=== PATIENT | female | born 1955 | race Caucasian/White ===

== ENCOUNTER 2020-08-09 05:46 | Emergency (ER) | payer MEDICARE, SELFPAY ==
[2020-08-09] VITALS (13 sets, daily range): BP systolic 123–187; BP diastolic 36–86; PULSE 91–111; RESP 16–99; TEMP 37.6; O2SAT 94–100
--- NOTE | ~2020-08-09 | XR_ITS ---
EXAMINATION: XR chest 1V portable DATE: 08/09/2020 06:22 INDICATION: Weakness and mid back pain. TECHNIQUE: frontal view of the chest was obtained. COMPARISON: 01/20/2018 FINDINGS: The lungs remain clear with no focal airspace opacities, pulmonary edema, pleural effusion or pneumot horax. The cardiomediastinal silhouette is normal. Moderate thoracic spondylosis. IMPRESSION: 1. No acute cardiopulmonary disease. Reviewed, dictated and finalized at location A.
--- NOTE | 2020-08-09 05:50 | ECG_ITS ---
Measurements Intervals [place] Rate: 99 P: -3 ME: 155 QRS: -31 QRSD: 83 T: 11 QT: 352 QTc: 452 Interpretive Statements SINUS RHYTHM LEFT AXIS DEVIATION INCOMPLETE RIGHT BUNDLE BRANCH BLOCK DELAYED PRECORDIAL R/S TRANSITION BASELINE ARTIFACT- II, III, AVR, AVF, V1, V3-V6 BORDERLINE ECG Electronically Signed On 08-09-2020 6:06:23 CDT by Fuentes Mejia D.O.
--- NOTE | 2020-08-09 06:00 | PC.NURSE ---
Pt presents to ED with complaints of generalized weakness that onset this past saturday after pt and received Pfizer covid shot. Pt states pain is in her mid back and goes to her waist. Pt noted with poor appetite, nausea and diarrhea. Pt denies fever, chills, chest pain and sob. Pt arrived to alert and oriented x4 and in no obvious distress. presented to bedside. EKG completed during triage at 0556. Pt noted to be a diabetic and glucose upon arrival to ED was 267. No edema noted to extremities. Scabbed and discolored right elbow due to recent fall last saturday. Pt resting on cart in its lowest position with call button and personal items within reach. Pt advised to press call button for assistance.
--- NOTE | 2020-08-09 06:03 | PC.NURSE ---
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 Pt provided a specimen cup and advised to call staff when she is ready to urinate. Pt also advised that if she is not able to urinate she may need to be straight cath and voices her understanding.
[2020-08-09 06:06] LABS: Glucose Point of Care 267 mg/dl (65-105)
[2020-08-09 06:16] LABS: Basophils Percent Auto 0.4 % (0.2-1.2); Eosinophils Percent Auto 0.2 % (0-4.4); Hematocrit 39.3 % (37.0-47.0); Hemoglobin 13.8 g/dL (12.0-15.0); Immature Granulocyte Absolute 0.02 K/mm3 (0.00-0.031); Immature Granulocyte Percent A 0.4 % (0-0.5); Lymphocytes Percent Auto 21.2 % (18.3-44.2); Mean Corpuscular HGB Conc 35.1 g/dl (32-36); Mean Corpuscular Hemoglobin 29.7 pg (26-34); Mean Corpuscular Volume 84.7 fl (80-100); Mean Platelet Volume 9.7 fl (7.4-10.4); Monocytes Absolute Auto 0.5 K/mm3 (0.1-0.6); Monocytes Percent Auto 11.5 % (2.6-8.5); Neutrophils Absolute Auto 3.1 K/mm3 (1.3-6.7); Neutrophils Percent Auto 66.3 % (45.5-73.1); Platelet Count Result 176 k/mm3 (150-375); Red Blood Count 4.64 M/mm3 (4.2-5.4); Red Cell Distribution Width 12.2 % (11.5-14.5); White Blood Count 4.7 K/mm3 (4.5-10.0)
--- NOTE | 2020-08-09 06:21 | PC.NURSE ---
CXR completed at bedside.
[2020-08-09 06:26] LABS: Alanine Aminotransferase 32 U/L (4-35); Albumin Level 4.6 g/dL (3.5-5.1); Alkaline Phosphatase 58 U/L (38-126); Anion Gap 14 mmol/L (8-16); Aspartate Amino Transferase 46 U/L (14-36); Bilirubin,Total 0.7 mg/dL (0.2-1.3); Blood Urea Nitrogen 17 mg/dL (7-17); Calcium 9.3 mg/dL (8.4-10.2); Carbon Dioxide 21 mmol/L (22-30); Chloride 100 mmol/L (98-107); Estimated Glomerular Filt Rate > 60; Glucose 273 mg/dL (65-105); Potassium 3.8 mmol/L (3.4-5.0); Sodium 135 mmol/L (137-145)
--- NOTE | 2020-08-09 06:56 | PC.NURSE ---
Pt assisted on and off of bedpan and urine specimen collected and sent to lab. Pt resting on cart in its lowest position with call button and personal items within reach. remains at bedside. Pt advised to press call button for assistance. Pt remains alert, stable and in no obvious distress with stable vitals.
[2020-08-09 07:13] LABS: Add Urine Microscopic? YES; Appearance Urine Clear (Clear); Bilirubin Urine Negative (Negative); Blood Urine Negative (Negative); Color Urine Amber (Yellow); Glucose Urine UA 1+ mg/dL (Negative); Ketones Urine Trace mg/dL (Negative); Leukocyte Esterase Ur Negative LEU/UL (Negative); Mucus Urine Rare /lpf; Nitrate Urine Negative (Negative); Protein Urine 1+ mg/dL (Negative); RBC Urine 0-2 /hpf (0-2); Squamous Epithelial Cell Urine Occasional /hpf (Few); WBC Urine 0-3 /hpf
[2020-08-09] MEDS: SODIUM CHLORIDE 0.9% IV 1,000 ML 999 ML IV CONT (07:42)
[2020-08-09] MEDS: ONDANSETRON INJ 4 MG/2 ML VIAL IV PUSH (07:42)
--- NOTE | 2020-08-09 07:50 | ED.WEAKNESS ---
HPI - Weakness General Chief complaint: Weakness Stated complaint: Lathargic Time Seen by Provider: 08/09/20 06:59 History of Present Illness HPI Narrative: Patient is a 65-year-old female who presents ER with 1 week of nausea and vomiting. Reports she has been unable to keep anything down. Symptoms began 3 hours after getting her first dose of Pfizer Covid vaccine. No fevers or chills or sweats. No alleviating factors. Worsened by eating. Concerned that she is very dehydrated. She has had no blood in her stool or emesis. She has having episodes of diarrhea as well. No known sick contacts. Related Data Home Medications Medication Instructions Recorded Confirmed atorvastatin 10 mg tablet 10 mg PO DAILY 12/29/18 05/08/19 dulaglutide 1.5 mg/0.5 mL 1.5 mg SUB-Q WEEKLY 12/29/18 05/08/19 subcutaneous pen injector fenofibrate 160 mg tablet 160 mg PO DAILY 12/29/18 05/08/19 insulin glargine 100 unit/mL (3 70 unit SUB-Q DAILY ml 12/29/18 05/08/19 mL) subcutaneous pen losartan 50 mg tablet 50 mg PO DAILY 12/29/18 05/08/19 ylnmhextcgjk-nebtvluo-mdbnie tablet 1 tablet PO DAILY 12/29/18 05/08/19 vitamins A,C,M-dcts-axgaff 7,160 2 tablet PO BID 12/29/18 05/08/19 unit-113 mg-100 unit tablet Allergies Allergy/AdvReac Type Severity Reaction Status Date / Time erythromycin base Allergy Unknown Unknown Verified 05/08/19 11:58 Penicillins Allergy Unknown unknown Verified 05/08/19 11:58 prochlorperazine Allergy Unknown SEIZURES Verified 05/08/19 11:58 Review of Systems Review of Systems: All systems reviewed & are unremarkable except as noted in HPI and below Constitutional: Constitutional: Denies chills, Denies fever(s) and Reports weakness ENT: Denies nasal congestion and Denies sore throat Gastrointestinal: Gastrointestinal: Denies abdominal pain, Reports diarrhea, Reports nausea and Reports vomiting PMFSH Past Medical History Medical History (Updated 08/09/20 @ 09:22 by Adrian Cain MD) Elevated liver function tests Mononeuropathy due to underlying disease Normal colonoscopy Other hyperlipidemia Thoracic disc disease Type 2 diabetes mellitus without complications Surgical History Surgical History H/O breast biopsy H/O dilation and curettage History of colectomy History of hysterectomy with oophorectomy History of tubal ligation Family History Family History Sibling Family history of malignant neoplasm of breast in first degree relative Other Diabetes mellitus Family history of throat cancer Hypertension Social History Social History Smoking status: Never smoker Second hand tobacco smoke exposure: No Alcohol intake: never Exam Narrative: Exam Narrative: GENERAL: Well-appearing, well-nourished, and in no acute distress. HEAD: Normocephalic, atraumatic. CHEST: Clear to auscultation. No respiratory distress. HEART: Regular rate and rhythm. Normal peripheral pulses. ABDOMEN: Soft, nontender, nondistended, normal active bowel sounds. EXTREMITIES: Normal range of motion. No edema. SKIN: Warm, dry, no rash. NEURO: Alert and oriented x3. PSYCH: Normal mood and affect. Course Course Emergency Course: Unremarkable evaluation. Hydrated and received Zofran. Feels much improved. Discharge home with supportive therapy. Vital Signs Vital signs: Vital Signs Temperature 99.6 F 08/09/20 05:49 Pulse Rate 100 08/09/20 05:49 Respiratory Rate 99 H 08/09/20 05:49 Blood Pressure 187/86 H 08/09/20 05:49 Pulse Oximetry 100 08/09/20 05:49 Temperature 99.6 F 08/09/20 05:49 Pulse Rate 95 08/09/20 08:46 Respiratory Rate 25 H 08/09/20 08:46 Blood Pressure 140/61 08/09/20 08:46 Pulse Oximetry 97 08/09/20 08:46 MDM - Weakness Lab Data Result diagrams: 08/09/20 06:06 07/13
== END 2020-08-09 09:42 | disposition home or self-care (01) ==
PROVIDERS: Emergency Medicine; Emergency Provider Emergency Medicine; PCP Family Medicine
DX: K52.9 Noninfective gastroenteritis and colitis, unspecified (principal); Z79.82 Long term (current) use of aspirin; E11.41 Type 2 diabetes mellitus with diabetic mononeuropathy; E78.49 Other hyperlipidemia; Z79.4 Long term (current) use of insulin; I45.10 Unspecified right bundle-branch block
CPT/HCPCS: 36415; 71045; 80053; 81001; 82948; 85025; 93005; 96361; 96374; 99284; J2405; J7030

== ENCOUNTER 2020-08-17 16:23 | Inpatient (IN) | payer MEDICARE, SELFPAY ==
--- NOTE | ~2020-08-17 | CT_ITS ---
EXAMINATION: CTA chest PE protocol DATE: 08/18/2020 11:19 INDICATION: Shortness of breath. TECHNIQUE: Computed tomography angiography (CTA) of the chest was performed with 100 mL Omnipaque-350 intravenous contrast timed to evaluate the pulmonary arteries. Coronal maximum intensity projection 3D-reconstructions were created by the technologist. Automated exposure control and iterative reconst ruction technique were employed. The dose-length product was 417.62 mGy-cm. COMPARISON: Chest CT 08/18/2020 FINDINGS: The lungs demonstrate mild atelectasis. No pleural effusion. There is a peripherally calcif ied 14 mm nodule in left thyroid lobe, likely not clinically significant. The heart size is normal. T here are coronary artery calcifications. No pericardial effusion. There is no pulmonary embolus. Ther e are changes of cholecystectomy. There is a 10 mm mass in left adrenal gland containing fat, consist ent with a myelolipoma. There is mild thoracic spondylosis. There is mild chronic anterior wedging of multiple thoracic vertebral bodies. IMPRESSION: 1. No pulmonary embolus. Reviewed, dictated and finalized at location A. IMPRESSION: 1. No pulmonary embolus.
--- NOTE | ~2020-08-17 | CT_ITS ---
EXAMINATION: CTA chest PE abdomen pel DATE: 08/18/2020 00:33 INDICATION: Shortness of breath TECHNIQUE: Computed tomography angiography (CTA) of the chest was performed with 100 mL Omnipaque-350 intravenous contrast timed to evaluate the pulmonary arteries. Coronal maximum intensity projection 3D-reconstructions were created by the technologist. Automated exposure control and iterative reconst ruction technique were employed. Exam dose: 1295.52 mGy-cm total exam DLP. COMPARISON: 08/17/2020 AP and lateral chest 12/08/2013 CT pulmonary scan; no pulmonary emboli were demonstrated FINDINGS: There is limited contrast enhancement of the pulmonary arteries due to suboptimal timing of the exposure with greater contrast enhancement of the thoracic aorta. No thoracic aortic aneurysm or dissection. 1.4 cm peripherally calcified left thyroid nodule. No hilar or mediastinal mass lesion or lymphadenopathy. Trace pericardial effusion. Normal heart size. Coronary artery calcification. No pulmonary infiltrate or consolidation or suspicious pulmonary mass lesion is evident. Status post cholecystectomy. Hepatic steatosis. The spleen measures 12.2 cm vertical dimension, within upper limits of normal. The liver, spleen, pancreas, bile ducts and pancreatic duct are otherwise unremarkable. 11 mm fatty lesion of the left adrenal gland, benign. The adrenal glands are otherwise unremarkable. No renal mass lesion or urinary tract calculus or hydroureteronephrosis. The urinary bladder is unrem arkable. Status post hysterectomy. Normal caliber of the abdominal aorta. No intraperitoneal or retroperitoneal or pelvic mass lesion or adenopathy or ascites. Normal appendix. No bowel obstruction, bowel wall thickening, pneumatosis or intraperitoneal free air . IMPRESSION: Nondiagnostic examination for pulmonary embolism; repeat examination is suggested. 1.4 cm peripherally calcified left thyroid nodule Trace pericardial effusion Coronary artery atherosclerotic calcification Status post cholecystectomy Hepatic steatosis Benign 11 mm fatty lesion of left adrenal gland Status post hysterectomy Normal appendix Reviewed, dictated and finalized at Location A. Reviewed, dictated and finalized at location A. IMPRESSION: Nondiagnostic examination for pulmonary embolism; repeat examinati on is suggested. 1.4 cm peripherally calcified left thyroid nodule Trace pericardial effusion Coronary artery atherosclerotic calcification Status post cholecystectomy Hepatic steatosis Benign 11 mm fatty lesion of left adrenal gland Status post hysterectomy Normal appendix
--- NOTE | ~2020-08-17 | XR_ITS ---
EXAMINATION: XR chest 2V EXAM DATE: 08/17/2020 16:49 INDICATION: Left-sided chest pain, shortness of breath. TECHNIQUE: Frontal and lateral projections of the chest obtained and reviewed. Comparison is made to prior examination from 08/09/20. FINDINGS: The lungs are clear. There are no pleural effusions. The cardiomediastinal silhouette is within normal limits. There is no pneumothorax suspected. The bones and soft tissues are unremarkab le. IMPRESSION: No acute cardiopulmonary findings. Reviewed, dictated and finalized at location B.
[2020-08-17 16:26] VITALS: BP 150/81; PULSE 109; RESP 18; TEMP 35.7; O2SAT 100
--- NOTE | 2020-08-17 16:28 | ECG_ITS ---
Measurements Intervals [place] Rate: 105 P: 50 NE: 164 QRS: -13 QRSD: 93 T: 37 QT: 361 QTc: 478 Interpretive Statements SINUS TACHYCARDIA DELAYED PRECORDIAL R/S TRANSITION VOLTAGE CRITERIA FOR LVH ABNORMAL ECG Electronically Signed On 08-17-2020 16:40:01 CDT by Fuentes Mejia D.O.
[2020-08-17 16:51] LABS: Basophils Percent Auto 0.6 % (0.2-1.2); Eosinophils Absolute Auto 0.1 K/mm3 (0-0.3); Eosinophils Percent Auto 1.3 % (0-4.4); Hematocrit 39.2 % (37.0-47.0); Immature Granulocyte Absolute 0.04 K/mm3 (0.00-0.031); Immature Granulocyte Percent A 0.8 % (0-0.5); Lymphocytes Absolute Auto 1.53 K/mm3 (0.9-3.2); Lymphocytes Percent Auto 28.9 % (18.3-44.2); Mean Corpuscular HGB Conc 35.7 g/dl (32-36); Mean Corpuscular Volume 81.3 fl (80-100); Mean Platelet Volume 9.4 fl (7.4-10.4); Monocytes Absolute Auto 0.4 K/mm3 (0.1-0.6); Monocytes Percent Auto 7.7 % (2.6-8.5); Neutrophils Absolute Auto 3.2 K/mm3 (1.3-6.7); Neutrophils Percent Auto 60.7 % (45.5-73.1); Platelet Count Result 251 k/mm3 (150-375); Red Blood Count 4.82 M/mm3 (4.2-5.4); White Blood Count 5.3 K/mm3 (4.5-10.0)
[2020-08-17 17:03] LABS: Alanine Aminotransferase 31 U/L (4-35); Albumin Level 4.7 g/dL (3.5-5.1); Alkaline Phosphatase 78 U/L (38-126); Anion Gap 16 mmol/L (8-16); Aspartate Amino Transferase 37 U/L (14-36); Bilirubin,Total 1.1 mg/dL (0.2-1.3); Blood Urea Nitrogen 12 mg/dL (7-17); Calcium 9.7 mg/dL (8.4-10.2); Carbon Dioxide 17 mmol/L (22-30); Chloride 108 mmol/L (98-107); Estimated CRCL calculation 87 ml/min; Estimated Glomerular Filt Rate > 60; Glucose 210 mg/dL (65-105); Potassium 3.8 mmol/L (3.4-5.0); Sodium 141 mmol/L (137-145)
[2020-08-17 18:12] LABS: Add Urine Microscopic? YES; Appearance Urine Clear (Clear); Bacteria Urine Trace /hpf; Bilirubin Urine Negative (Negative); Blood Urine Negative (Negative); Color Urine Yellow (Yellow); Glucose Urine UA Negative (Negative); Ketones Urine Trace mg/dL (Negative); Leukocyte Esterase Ur Trace LEU/UL (Negative); Mucus Urine Few /lpf; Nitrate Urine Negative (Negative); Protein Urine 1+ mg/dL (Negative); RBC Urine 0-2 /hpf (0-2); Specific Grav Ur 1.014 (1.001-1.035); Squamous Epithelial Cell Urine Few /hpf (Few); Urobilinogen Urine Negative mg/dL (<2.0)
[2020-08-17 19:25] VITALS: BP 140/86; PULSE 114; RESP 20; O2SAT 100
[2020-08-17] MEDS: ONDANSETRON INJ 4 MG/2 ML VIAL IV PUSH (21:43)
[2020-08-17] MEDS: SODIUM CHLORIDE 0.9% IV 1,000 ML 999 ML IV CONT (21:43)
[2020-08-17 22:18] VITALS: BP 138/88; PULSE 105; RESP 18; O2SAT 100
--- NOTE | 2020-08-17 23:09 | ED.GENADULT ---
HPI - General Adult General Chief complaint: Shortness of Breath/Dyspnea Stated complaint: diff breathing Time Seen by Provider: 08/17/20 19:42 Source: patient and family Mode of arrival: ambulatory Limitations: no limitations History of Present Illness HPI narrative: 65-year-old with a history of hypertension, diabetes here with complaints of shortness of breath, not feeling well for past few weeks. Patient states that 2 weeks ago she received Covid vaccination few days later she developed GI symptoms was seen here in the ER retired was diagnosed with colitis however since then she states that she feels extremely nauseated. Feels short of breath. She denies any chest pain no fever or chills. She states that she is unable to drink water because of her nausea Onset (ago): week(s) (1) Severity: moderate Relieving factors: none Exacerbating factors: none Associated symptoms: nausea/vomiting and shortness of breath Treatments prior to arrival: none Related Data Home Medications Medication Instructions Recorded Confirmed atorvastatin 10 mg tablet 10 mg PO DAILY 12/29/18 05/08/19 dulaglutide 1.5 mg/0.5 mL 1.5 mg SUB-Q WEEKLY 12/29/18 05/08/19 subcutaneous pen injector fenofibrate 160 mg tablet 160 mg PO DAILY 12/29/18 05/08/19 insulin glargine 100 unit/mL (3 70 unit SUB-Q DAILY ml 12/29/18 05/08/19 mL) subcutaneous pen losartan 50 mg tablet 50 mg PO DAILY 12/29/18 05/08/19 srcaqrboidcm-lejpkrvx-imucrq tablet 1 tablet PO DAILY 12/29/18 05/08/19 vitamins A,C,A-wxyn-mzvkgz 7,160 2 tablet PO BID 12/29/18 05/08/19 unit-113 mg-100 unit tablet Allergies Allergy/AdvReac Type Severity Reaction Status Date / Time erythromycin base Allergy Unknown Unknown Verified 08/17/20 19:27 Penicillins Allergy Unknown unknown Verified 08/17/20 19:27 prochlorperazine Allergy Unknown SEIZURES Verified 08/17/20 19:27 Review of Systems Review of Systems: All systems reviewed & are unremarkable except as noted in HPI and below Constitutional: Constitutional: Reports no additional constitutional complaints Eyes: Eyes: Reports no additional eye complaints ENT: Reports system reviewed and no additional complaints, except as documented Cardiovascular: Cardiovascular: Reports no additional cardiovascular complaints Respiratory: Respiratory: Reports as per HPI Gastrointestinal: Gastrointestinal: Reports as per HPI Musculoskeletal: Musculoskeletal: Reports no additional musculoskeletal complaints Neurologic: Reports system reviewed and no additional complaints, except as documented PMFSH Past Medical History Medical History (Updated 08/18/20 @ 01:13 by Fermin Mccullough MD) Elevated liver function tests Mononeuropathy due to underlying disease Normal colonoscopy Other hyperlipidemia Thoracic disc disease Type 2 diabetes mellitus without complications Surgical History Surgical History H/O breast biopsy H/O dilation and curettage History of colectomy History of hysterectomy with oophorectomy History of tubal ligation Family History Family History Sibling Family history of malignant neoplasm of breast in first degree relative Other Diabetes mellitus Family history of throat cancer Hypertension Social History Social History Smoking status: Never smoker Second hand tobacco smoke exposure: No Alcohol intake: never Gender identity (if verbalized by the patient): Female Exam Narrative: Exam Narrative: GENERAL: Well-appearing, well-nourished, and in no acute distress. HEAD: Normocephalic, atraumatic. EYES: PERRLA and EOMI.. NECK: Supple. CHEST: Clear to auscultation. No respiratory distress. HEART: Regular rate and rhythm. No murmur heard. Normal peripheral pulses. ABDOMEN: Soft, nontender, nondistended, normal active bowel sounds. EXTREMITIES:
[2020-08-17 23:33] VITALS: BP 164/74; TEMP 37.4; O2SAT 99
[2020-08-18] VITALS (9 sets, daily range): BP systolic 141–175; BP diastolic 59–85; PULSE 80–100; RESP 16–19; TEMP 36.3–37; O2SAT 96–100; BMI 30.2
--- NOTE | 2020-08-18 02:38 | PC.NURSE ---
This patient, Claudia Thomas, was admitted to Medical Room 250-. Patient/family oriented to hospital policies and general routines including ID bracelet, bed and alarms, visiting hours, pain management, procedures, bathroom and other care routines, personal items, smoking policy, room service/diet, and visiting hours. Information on how to activate the Rapid Response Team has been discussed. Patient/Family are encouraged to report perceived risks to care and to ask questions if they do not understand what they are told or what they should do.
[2020-08-18] MEDS: ONDANSETRON INJ 4 MG/2 ML VIAL IV PUSH ×3 (03:07→13:02)
[2020-08-18] MEDS: SODIUM CHLORIDE 0.9% IV 1,000 ML 125 ML IV CONT (03:08)
[2020-08-18 03:27] LABS: Glucose Point of Care 196 mg/dl (65-105)
[2020-08-18 09:43] LABS: Alanine Aminotransferase 22 U/L (4-35); Albumin Level 3.8 g/dL (3.5-5.1); Alkaline Phosphatase 60 U/L (38-126); Anion Gap 11 mmol/L (8-16); Aspartate Amino Transferase 26 U/L (14-36); Bilirubin,Total 0.9 mg/dL (0.2-1.3); Blood Urea Nitrogen 16 mg/dL (7-17); Calcium 8.6 mg/dL (8.4-10.2); Carbon Dioxide 19 mmol/L (22-30); Chloride 111 mmol/L (98-107); Estimated CRCL calculation 72 ml/min; Estimated Glomerular Filt Rate > 60; Glucose 225 mg/dL (65-105); Potassium 3.7 mmol/L (3.4-5.0); Sodium 141 mmol/L (137-145)
--- NOTE | 2020-08-18 09:48 | PM.IMHP ---
H&P: HPI History of Present Illness Date/Time: 08/18/20 09:48 Chief Complaint: Generalized weakness Narrative: This is a 65 year old woman with history of HTN, HLD, DM on insulin, who presented to the ER with complaints of increased fatigue, nausea, vomiting, diarrhea for 2 weeks. The patient had the first dose of Pfizer COVID Vaccine on 08/03/20. She came home after the vaccine and took a nap. When she woke up from her nap she had a headache, became nauseous and vomiting. She barely has an appetite but tries to force herself to eat. She states when she eats she ends of having diarrhea afterwards. Diarrhea is usually 5-6 stools a day, watery in nature. She also reports some dark stools, denies any bright red blood. She feels generalized weakness, fatigue which is progressively worsened for the last 2 weeks. She feels dehydrated. denies any urinary symptoms of frequent urination, dysuria, foul odor to her urine. She does feel lightheaded and dizzy with standing up, denies any syncopal episodes. She does have a postnasal drip, some nasal congestion, a mostly dry cough with intermittent clear sputum production from her postnasal drip. She does have some shortness of breath over the last few days, trouble catching her breath prior to coming in when she told her brother to bring her to the emergency room. She does report some SOB with exertion. Denies hemoptysis. She does report some bilateral lateral rib discomfort intermittently when she is getting up or moving around. She does report loss of her taste and smell. She denies history of COVID that she is aware of. She has not been wearing her mask all of the time. She did report some shaking chills or rigers last night while in the ER for 20 minutes while they started giving her IV fluids. Denies any fever or chills since. She reports intermittent slight headache at times, denies at this time.Denies any leg swelling, calf pain, or any other symptoms at this time. Code Status- Full Code POA- , Naveen Solis PCP- Dr. Blanca Mason Review of Systems Review of Systems: All systems reviewed & are unremarkable except as noted in HPI and below PMFSH Past Medical History Medical History (Updated 08/18/20 @ 12:45 by Sally Garcia PA-C) Elevated liver function tests Mononeuropathy due to underlying disease Normal colonoscopy Other hyperlipidemia Thoracic disc disease Type 2 diabetes mellitus without complications Surgical History Surgical History H/O breast biopsy H/O dilation and curettage History of colectomy History of hysterectomy with oophorectomy History of tubal ligation Family History Family History Sibling Family history of malignant neoplasm of breast in first degree relative Other Diabetes mellitus Family history of throat cancer Hypertension Social History Social History Smoking status: Never smoker Second hand tobacco smoke exposure: No Alcohol intake: never Substance use: never Gender identity (if verbalized by the patient): Female Spiritual care concerns: No Meds Home Medications and Allergies Home Medications Medication Instructions Recorded Confirmed Type atorvastatin 10 mg tablet 10 mg PO DAILY 12/29/18 08/18/20 History fenofibrate 160 mg tablet 160 mg PO DAILY 12/29/18 08/18/20 History losartan 50 mg tablet 50 mg PO DAILY 12/29/18 08/18/20 History aogmkudkdceu-djziwktj-evrgzh tablet 1 tablet PO DAILY 12/29/18 08/18/20 History vitamins A,C,V-pxoq-lpdmfi 7,160 2 tablet PO DAILY 12/29/18 08/18/20 History unit-113 mg-100 unit tablet gabapentin 300 mg capsule 300 mg PO TID #90 cap 09/09/19 08/18/20 Rx insulin NPH human semi-syn 35 unit SUBCUT Q12H 08/18/20 08/18/20 History [Novolin N (Semi-Synthetic)] insulin regular human [Novolin R See Rx Instructions .ROUTE .COMPLE
[2020-08-18 10:00] LABS: Lactic Acid Reflex 0.9 mmol/L (0.7-2.1)
[2020-08-18] MEDS: LOSARTAN POTASSIUM 50 MG TABLET PO (10:18)
[2020-08-18] MEDS: PANTOPRAZOLE SODIUM IV 40 MG VIAL IV PUSH ×2 (10:18→20:52)
[2020-08-18] MEDS: GABAPENTIN 300 MG CAPSULE PO ×3 (10:18→18:52)
[2020-08-18 10:22] LABS: Hemoglobin A1C 6.8 % (<5.7)
--- NOTE | 2020-08-18 11:33 | PCOTNOTE ---
OT Evaluation attempted. Patient down for testing at this time and scheduled to move units upon finishing testing. Will attempt at later time.
[2020-08-18 11:46] LABS: Glucose Point of Care 194 mg/dl (65-105)
--- NOTE | 2020-08-18 12:00 | PC.NURSE ---
This patient, Claudia Thomas, was transferred to [facility] on 08/18/20 at 1200. Personal belongings sent with patient. Report given to RUBINA Montes De Oca. Appropriate documentation sent with patient.
--- NOTE | 2020-08-18 12:01 | PC.NURSE ---
This patient, Claudia Thomas, was received from [[facility]] on 08/18/20 at 1155. Patient/family oriented to unit policies and routines
[2020-08-18 12:30] LABS: Hematocrit 35.3 % (37.0-47.0); Mean Corpuscular Hemoglobin 29.5 pg (26-34); Mean Corpuscular Volume 86.7 fl (80-100); Mean Platelet Volume 10.2 fl (7.4-10.4); Platelet Count Result 216 k/mm3 (150-375); Red Blood Count 4.07 M/mm3 (4.2-5.4); Red Cell Distribution Width 12.6 % (11.5-14.5); White Blood Count 4.6 K/mm3 (4.5-10.0)
[2020-08-18 12:41] LABS: CRP < 0.5 mg/dL (<1.0); Lactate Dehydrogenase 346 U/L (313-618)
[2020-08-18] MEDS: SODIUM CHLORIDE 0.9% IV 1,000 ML 85 ML IV CONT (12:48)
[2020-08-18 17:01] LABS: Glucose Point of Care 164 mg/dl (65-105)
[2020-08-18 21:49] LABS: Glucose Point of Care 171 mg/dl (65-105)
[2020-08-19 04:00] VITALS: BP 160/65; PULSE 83; RESP 18; TEMP 36.3; O2SAT 98
[2020-08-19] MEDS: SODIUM CHLORIDE 0.9% IV 1,000 ML 85 ML IV CONT ×2 (04:45→21:42)
[2020-08-19] MEDS: ACETAMINOPHEN 325 MG TABLET 650 MG PO ×2 (04:46→21:41)
[2020-08-19 06:31] LABS: Anion Gap 10 mmol/L (8-16); Blood Urea Nitrogen 12 mg/dL (7-17); Calcium 8.6 mg/dL (8.4-10.2); Carbon Dioxide 21 mmol/L (22-30); Chloride 110 mmol/L (98-107); Estimated CRCL calculation 72 ml/min; Estimated Glomerular Filt Rate > 60; Glucose 173 mg/dL (65-105); Potassium 3.5 mmol/L (3.4-5.0); Sodium 141 mmol/L (137-145)
[2020-08-19 07:59] LABS: Glucose Point of Care 171 mg/dl (65-105)
[2020-08-19 08:00] VITALS: BP 154/70; PULSE 81; RESP 16; TEMP 36.7; O2SAT 98
[2020-08-19] MEDS: LOSARTAN POTASSIUM 50 MG TABLET PO (08:53)
[2020-08-19] MEDS: ENOXAPARIN 40 MG/0.4 ML SYRINGE SUB-Q (08:53)
[2020-08-19] MEDS: GABAPENTIN 300 MG CAPSULE PO ×3 (08:53→16:55)
[2020-08-19] MEDS: PANTOPRAZOLE SODIUM IV 40 MG VIAL IV PUSH ×2 (08:54→21:42)
[2020-08-19 09:53] VITALS: O2SAT 98
[2020-08-19 12:00] VITALS: BP 152/62; PULSE 83; RESP 16; TEMP 37.2; O2SAT 99
[2020-08-19 12:30] LABS: Glucose Point of Care 186 mg/dl (65-105)
--- NOTE | 2020-08-19 14:46 | PM.IMPN ---
Progress Note: A&P Assessment and Plan (1) Generalized weakness: Code(s): R53.1 - Weakness Status: Acute Assessment and Plan: generalized weakness could be from some dehydration from nausea/vomiting verses COVID-19 and verses reaction from COVID-19 1st vaccine verses gastroenteritis. Continue her light IV fluids at this time since her labs show her to be dehydrated slowly advance diet as tolerated concerned for COVID-19 so we will swab her and she will be placed in isolation at this time ordering COVID-19 inflammatory markers: Ferritin 319, CRP is less than 0.5, LDH 346 PT/OT Continue monitoring. (2) Nausea: Code(s): R11.0 - Nausea Status: Acute Assessment and Plan: Patient continues to have some nausea, not much of an appetite. Also reports loss of taste and smell. CTA abdomen pelvis showed no acute abnormality for her symptoms patient stated that she still has nausea and has been helping with the Zofran And fluids. Patient states she still does not have much of an appetite and she still has no taste or smell. (3) Diarrhea: Code(s): R19.7 - Diarrhea, unspecified Status: Acute Assessment and Plan: the patient did say she was on ciprofloxacin for an infected tooth few weeks ago by her dentist. She only took 5 pills because she started feeling bad and was having a hard time swallowing the large pills. she does report having watery diarrhea about 5-6 per day so we will check a stool sample to rule out C diff C diff pending NS 85 mils an hour for hydration Banatrol plus t.i.d. with meals along with Florastor (4) Breath, shortness: Code(s): R06.02 - Shortness of breath Status: Acute Assessment and Plan: Reports some shortness of breath, trouble catching her breath prior to arrival in some dyspnea with exertion. Could be all secondary to dehydration and generalized weakness from her acute illness. CTA chest showed no acute pulmonary embolism, no pleural effusion, no signs of infection She denies any chest pain. still has shortness of breath at rest continue monitoring. (5) Hypertension: Code(s): I10 - Essential (primary) hypertension Status: Acute Assessment and Plan: blood pressure elevated at 152/62 Continue monitoring.Continue losartan blood pressure medication. Make adjustments if necessary. (6) Other hyperlipidemia: Code(s): E78.49 - Other hyperlipidemia Status: Chronic Assessment and Plan: Will hold statin and fenofibrate at this time until she is tolerating a diet better. (7) Type 2 diabetes mellitus without complications: Code(s): E11.9 - Type 2 diabetes mellitus without complications Status: Chronic Assessment and Plan: Patient's hemoglobin A1c is 6.8%. She has not been taking her insulin for the last 2 weeks since she has not been eating very well and feeling ill. Will continue to hold her Novolin N or Novolin R until she is eating and drinking better. glucose this morning was 173 Continue Accu-Cheks a.c. HS. Continue sliding scale insulin. Hypoglycemic protocol in place. (8) COVID-19 ruled out: Code(s): Z20.822 - Contact with and (suspected) exposure to COVID-19 Status: Acute Assessment and Plan: swabbed the patient for COVID due to generalized fatigue, weakness, loss of taste and smell, shortness of breath, and recently having the 1st dose of Pfizer vaccine verses her having a reaction to the vaccine She is placed in isolation at this time.
[2020-08-19 16:00] VITALS: BP 148/61; PULSE 82; RESP 16; TEMP 37.2; O2SAT 100
[2020-08-19] MEDS: SACCHAROMYCES BOULARDII 250 MG CAPSULE PO (16:55)
[2020-08-19] MEDS: INSULIN ASPART (*BKC) 100 UNITS/ML SUB-Q (16:59)
[2020-08-19 17:20] LABS: SARS-CoV-2 RNA PCR Positive
[2020-08-19 17:26] LABS: Glucose Point of Care 202 mg/dl (65-105)
[2020-08-19 20:00] VITALS: BP 140/63; PULSE 84; RESP 18; TEMP 36.7; O2SAT 98
[2020-08-19 21:52] LABS: Glucose Point of Care 200 mg/dl (65-105)
[2020-08-20] VITALS (8 sets, daily range): BP systolic 143–172; BP diastolic 51–80; PULSE 74–88; RESP 16; TEMP 36.4–37.2; O2SAT 94–100
[2020-08-20 06:14] LABS: Hematocrit 30.1 % (37.0-47.0); Hemoglobin 10.5 g/dL (12.0-15.0); Mean Corpuscular HGB Conc 34.9 g/dl (32-36); Mean Corpuscular Hemoglobin 29.2 pg (26-34); Mean Corpuscular Volume 83.6 fl (80-100); Mean Platelet Volume 9.1 fl (7.4-10.4); Platelet Count Result 185 k/mm3 (150-375); Red Cell Distribution Width 12.2 % (11.5-14.5); White Blood Count 3.7 K/mm3 (4.5-10.0)
[2020-08-20 06:43] LABS: Alanine Aminotransferase 22 U/L (4-35); Albumin Level 3.3 g/dL (3.5-5.1); Alkaline Phosphatase 56 U/L (38-126); Anion Gap 6 mmol/L (8-16); Aspartate Amino Transferase 29 U/L (14-36); Bilirubin,Total 0.5 mg/dL (0.2-1.3); Blood Urea Nitrogen 9 mg/dL (7-17); Calcium 8.4 mg/dL (8.4-10.2); Carbon Dioxide 23 mmol/L (22-30); Chloride 114 mmol/L (98-107); Estimated CRCL calculation 83 ml/min; Estimated Glomerular Filt Rate > 60; Glucose 192 mg/dL (65-105); Magnesium 1.6 mg/dL (1.6-2.3); Potassium 3.5 mmol/L (3.4-5.0); Sodium 143 mmol/L (137-145)
[2020-08-20 08:45] LABS: Glucose Point of Care 201 mg/dl (65-105)
[2020-08-20] MEDS: INSULIN ASPART (*BKC) 100 UNITS/ML SUB-Q ×3 (08:55→17:11)
[2020-08-20] MEDS: PANTOPRAZOLE SODIUM IV 40 MG VIAL IV PUSH ×2 (08:56→21:52)
[2020-08-20] MEDS: LOSARTAN POTASSIUM 50 MG TABLET PO (08:56)
[2020-08-20] MEDS: SACCHAROMYCES BOULARDII 250 MG CAPSULE PO ×2 (08:56→17:13)
[2020-08-20] MEDS: ENOXAPARIN 40 MG/0.4 ML SYRINGE SUB-Q ×2 (08:56→21:53)
[2020-08-20] MEDS: GABAPENTIN 300 MG CAPSULE PO ×3 (08:56→17:13)
[2020-08-20] MEDS: ACETAMINOPHEN 325 MG TABLET 650 MG PO ×2 (09:07→18:13)
[2020-08-20] MEDS: SODIUM CHLORIDE 0.9% IV 1,000 ML 85 ML IV CONT (09:07)
[2020-08-20 12:38] LABS: Glucose Point of Care 237 mg/dl (65-105)
[2020-08-20 15:43] LABS: INR 1.1; Prothrombin Time 13.9 Seconds (11.1-14.7)
--- NOTE | 2020-08-20 15:56 | PM.IMPN ---
Progress Note: A&P Assessment and Plan (1) Generalized weakness: Code(s): R53.1 - Weakness Status: Acute Assessment and Plan: generalized weakness could be from some dehydration from nausea/vomiting verses COVID-19 and verses reaction from COVID-19 1st vaccine verses gastroenteritis. Continue her light IV fluids at this time since her labs show her to be dehydrated slowly advance diet as tolerated concerned for COVID-19 so we will swab her and she will be placed in isolation at this time ordering COVID-19 inflammatory markers: Ferritin 319, CRP is less than 0.5, LDH 346 PT/OT Continue monitoring. 08/20/20 15:56 Patient's 65-year-old female who received her 1st dose of COVID vaccine presented emergency depart with complaint generalized fatigue, weakness, loss of taste and smell, shortness of breath, patient is positive COVID 19, patient does not have fever patient is on room air, started the patient on dexamethasone 10mg IV daily 02/20, remdesivir 02/15 and patient has agreed to take convalescent plasma, vitamin C and D as well as zinc, will continue to monitor if patient remains clinically stable, has no fever and does not require any oxygen may discharge in 5 days, I spoke with the patient's and answered all his questions (2) Nausea: Code(s): R11.0 - Nausea Status: Acute Assessment and Plan: Patient continues to have some nausea, not much of an appetite. Also reports loss of taste and smell. CTA abdomen pelvis showed no acute abnormality for her symptoms patient stated that she still has nausea and has been helping with the Zofran And fluids. Patient states she still does not have much of an appetite and she still has no taste or smell. (3) Diarrhea: Code(s): R19.7 - Diarrhea, unspecified Status: Acute Assessment and Plan: the patient did say she was on ciprofloxacin for an infected tooth few weeks ago by her dentist. She only took 5 pills because she started feeling bad and was having a hard time swallowing the large pills. she does report having watery diarrhea about 5-6 per day so we will check a stool sample to rule out C diff C diff pending NS 85 mils an hour for hydration Banatrol plus t.i.d. with meals along with Florastor (4) Breath, shortness: Code(s): R06.02 - Shortness of breath Status: Acute Assessment and Plan: Reports some shortness of breath, trouble catching her breath prior to arrival in some dyspnea with exertion. Could be all secondary to dehydration and generalized weakness from her acute illness. CTA chest showed no acute pulmonary embolism, no pleural effusion, no signs of infection She denies any chest pain. still has shortness of breath at rest continue monitoring. (5) Hypertension: Code(s): I10 - Essential (primary) hypertension Status: Acute Assessment and Plan: blood pressure elevated at 152/62 Continue monitoring.Continue losartan blood pressure medication. Make adjustments if necessary. (6) Other hyperlipidemia: Code(s): E78.49 - Other hyperlipidemia Status: Chronic Assessment and Plan: Will hold statin and fenofibrate at this time until she is tolerating a diet better. (7) Type 2 diabetes mellitus without complications: Code(s): E11.9 - Type 2 diabetes mellitus without complications Status: Chronic Assessment and Plan: Patient's hemoglobin A1c is 6.8%. She has not been taking her insulin for the last 2 weeks since she has not been eating very well and feeling ill. Will continue to hold her Novolin N or Novolin R until sh
[2020-08-20 17:04] LABS: Glucose Point of Care 213 mg/dl (65-105)
[2020-08-20] MEDS: REMDESIVIR 200 MG/NS 250 ML 200 MG/250 ML BAG 250 MG IVPB (17:11)
[2020-08-20] MEDS: ASCORBIC ACID 500 MG TABLET PO (17:12)
[2020-08-20] MEDS: CHOLECALCIFEROL 1,000 UNITS TABLET 1000 UNITS PO (17:13)
[2020-08-20] MEDS: ZINC SULFATE 220 MG CAPSULE PO (17:13)
[2020-08-20 22:25] LABS: Glucose Point of Care 453 mg/dl (65-105)
[2020-08-20 22:25] LABS: Glucose Point of Care 455 mg/dl (65-105)
[2020-08-20] MEDS: INSULIN ASPART (*BKC) 100 UNITS/ML 10 UNITS SUB-Q (22:55)
[2020-08-20] MEDS: SODIUM CHLORIDE 0.9% IV 250 ML 30 ML IV CONT (22:56)
[2020-08-21] VITALS: BP 167/63; PULSE 90; RESP 16; TEMP 36.5; O2SAT 97
[2020-08-21] MEDS: SODIUM CHLORIDE 0.9% IV 1,000 ML 85 ML IV CONT ×2 (00:41→17:48)
[2020-08-21 04:00] VITALS: BP 160/66; PULSE 95; RESP 16; TEMP 36.3; O2SAT 98
[2020-08-21 07:40] LABS: Alanine Aminotransferase 23 U/L (4-35); Estimated CRCL calculation 98 ml/min; Estimated Glomerular Filt Rate > 60
[2020-08-21 07:41] LABS: INR 1.1; Prothrombin Time 13.6 Seconds (11.1-14.7)
[2020-08-21 08:00] VITALS: BP 153/67; PULSE 97; RESP 18; TEMP 36.8; O2SAT 98
[2020-08-21 08:35] LABS: Glucose Point of Care 310 mg/dl (65-105)
[2020-08-21] MEDS: ASCORBIC ACID 500 MG TABLET PO (09:22)
[2020-08-21] MEDS: INSULIN ASPART (*BKC) 100 UNITS/ML SUB-Q ×2 (09:23→12:09)
[2020-08-21] MEDS: GABAPENTIN 300 MG CAPSULE PO ×3 (09:23→17:48)
[2020-08-21] MEDS: ZINC SULFATE 220 MG CAPSULE PO (09:24)
[2020-08-21] MEDS: SACCHAROMYCES BOULARDII 250 MG CAPSULE PO ×2 (09:24→17:48)
[2020-08-21] MEDS: LOSARTAN POTASSIUM 50 MG TABLET PO (09:24)
[2020-08-21] MEDS: CHOLECALCIFEROL 1,000 UNITS TABLET 1000 UNITS PO (09:24)
[2020-08-21] MEDS: PANTOPRAZOLE SODIUM IV 40 MG VIAL IV PUSH ×2 (09:25→21:03)
[2020-08-21 12:00] VITALS: BP 161/68; PULSE 89; RESP 18; TEMP 36.9; O2SAT 98
[2020-08-21] MEDS: ENOXAPARIN 40 MG/0.4 ML SYRINGE SUB-Q ×2 (12:08→21:03)
[2020-08-21] MEDS: REMDESIVIR 100 MG/NS 250 ML 100 MG/250 ML BAG 250 MG IVPB (12:09)
[2020-08-21 12:40] LABS: Glucose Point of Care 391 mg/dl (65-105)
[2020-08-21 16:00] VITALS: BP 153/72; PULSE 91; RESP 18; TEMP 37.2; O2SAT 98
--- NOTE | 2020-08-21 16:00 | PM.IMPN ---
Progress Note: A&P Assessment and Plan (1) Generalized weakness: Code(s): R53.1 - Weakness Status: Acute Assessment and Plan: generalized weakness could be from some dehydration from nausea/vomiting verses COVID-19 and verses reaction from COVID-19 1st vaccine verses gastroenteritis. Continue her light IV fluids at this time since her labs show her to be dehydrated slowly advance diet as tolerated concerned for COVID-19 so we will swab her and she will be placed in isolation at this time ordering COVID-19 inflammatory markers: Ferritin 319, CRP is less than 0.5, LDH 346 PT/OT Continue monitoring. 08/21/20 16:00 08/20 Patient's 65-year-old female who received her 1st dose of COVID vaccine presented emergency depart with complaint generalized fatigue, weakness, loss of taste and smell, shortness of breath, patient is positive COVID 19, patient does not have fever patient is on room air, started the patient on dexamethasone 10mg IV daily 02/20, remdesivir 02/15 and patient has agreed to take convalescent plasma, vitamin C and D as well as zinc, will continue to monitor if patient remains clinically stable, has no fever and does not require any oxygen may discharge in 5 days, I spoke with the patient's and answered all his questions. 08/21patient was positive COVID 19 on 08/19 , patient does not have fever patient is on room air, started the patient on dexamethasone 10mg IV daily 03/23, remdesivir and received convalescent plasma 08/20, patient remains clinically stable, patient states no more diarrhea, will monitor patient 1 more day if there is no fever and not requiring oxygen more than 6 L will discharge the patient home tomorrow. (2) Nausea: Code(s): R11.0 - Nausea Status: Acute Assessment and Plan: Patient continues to have some nausea, not much of an appetite. Also reports loss of taste and smell. CTA abdomen pelvis showed no acute abnormality for her symptoms patient stated that she still has nausea and has been helping with the Zofran And fluids. Patient states she still does not have much of an appetite and she still has no taste or smell. (3) Diarrhea: Code(s): R19.7 - Diarrhea, unspecified Status: Acute Assessment and Plan: the patient did say she was on ciprofloxacin for an infected tooth few weeks ago by her dentist. She only took 5 pills because she started feeling bad and was having a hard time swallowing the large pills. she does report having watery diarrhea about 5-6 per day so we will check a stool sample to rule out C diff C diff pending NS 85 mils an hour for hydration Banatrol plus t.i.d. with meals along with Florastor (4) Breath, shortness: Code(s): R06.02 - Shortness of breath Status: Acute Assessment and Plan: Reports some shortness of breath, trouble catching her breath prior to arrival in some dyspnea with exertion. Could be all secondary to dehydration and generalized weakness from her acute illness. CTA chest showed no acute pulmonary embolism, no pleural effusion, no signs of infection She denies any chest pain. still has shortness of breath at rest continue monitoring. (5) Hypertension: Code(s): I10 - Essential (primary) hypertension Status: Acute Assessment and Plan: blood pressure elevated at 152/62 Continue monitoring.Continue losartan blood pressure medication. Make adjustments if necessary. (6) Other hyperlipidemia: Code(s): E78.49 - Other hyperlipidemia Status: Chronic Assessment and Plan: Will hold statin and fenofibrate at this time until she is tolerating a diet better. ____
[2020-08-21 17:20] LABS: Glucose Point of Care 441 mg/dl (65-105)
[2020-08-21] MEDS: INSULIN ASPART (*BKC) 100 UNITS/ML 10 UNITS SUB-Q ×2 (17:47→22:10)
[2020-08-21] MEDS: INSULIN GLARGINE (*BKC) 100 UNITS/ML 30 UNITS SUB-Q (17:47)
[2020-08-21 20:00] VITALS: BP 148/62; PULSE 89; RESP 18; TEMP 36.7; O2SAT 98
[2020-08-21 22:07] LABS: Glucose Point of Care 457 mg/dl (65-105)
[2020-08-22] VITALS: BP 148/58; PULSE 74; RESP 18; TEMP 36.2; O2SAT 98
[2020-08-22 04:00] VITALS: BP 142/57; PULSE 76; RESP 18; TEMP 36.3; O2SAT 98
[2020-08-22] MEDS: SODIUM CHLORIDE 0.9% IV 1,000 ML 85 ML IV CONT (06:34)
[2020-08-22 07:01] LABS: Alanine Aminotransferase 21 U/L (4-35); Estimated CRCL calculation 83 ml/min; Estimated Glomerular Filt Rate > 60
[2020-08-22 07:24] LABS: Prothrombin Time 13.5 Seconds (11.1-14.7)
[2020-08-22 08:00] VITALS: BP 143/64; PULSE 72; RESP 18; TEMP 36.4; O2SAT 100
[2020-08-22] MEDS: INSULIN ASPART (*BKC) 100 UNITS/ML SUB-Q ×3 (08:07→17:59)
[2020-08-22] MEDS: ENOXAPARIN 40 MG/0.4 ML SYRINGE SUB-Q ×2 (08:07→20:57)
[2020-08-22] MEDS: ASCORBIC ACID 500 MG TABLET PO (08:08)
[2020-08-22] MEDS: CHOLECALCIFEROL 1,000 UNITS TABLET 1000 UNITS PO (08:08)
[2020-08-22] MEDS: GABAPENTIN 300 MG CAPSULE PO ×3 (08:08→18:00)
[2020-08-22] MEDS: SACCHAROMYCES BOULARDII 250 MG CAPSULE PO ×2 (08:08→18:00)
[2020-08-22] MEDS: ZINC SULFATE 220 MG CAPSULE PO (08:08)
[2020-08-22] MEDS: LOSARTAN POTASSIUM 50 MG TABLET PO (08:09)
[2020-08-22] MEDS: PANTOPRAZOLE SODIUM IV 40 MG VIAL IV PUSH ×2 (08:09→20:57)
[2020-08-22 09:13] LABS: Glucose Point of Care 222 mg/dl (65-105)
[2020-08-22] MEDS: REMDESIVIR 100 MG/NS 250 ML 100 MG/250 ML BAG 250 MG IVPB (10:16)
[2020-08-22 12:00] VITALS: BP 148/54; PULSE 74; RESP 18; TEMP 37.2; O2SAT 97
[2020-08-22 12:14] LABS: Glucose Point of Care 331 mg/dl (65-105)
--- NOTE | 2020-08-22 15:28 | P.DS_ITS ---
DS: Summary Time Spent with Patient Time attestation: Total time spent providing and/or coordinating discharge ser vices: DS: Data Data Completed and Pending Labs on day of discharge: Labs from last 24 hours 08/22/20 08/22/20 08/22/20 12:04 07:36 06:32 PT INR Creatinine 0.60 L Estim Creat Clear Calc 83 Estimated GFR > 60 POC Capillary Glucose 331 H 222 H ALT 21 08/22/20 08/21/20 08/21/20 06:32 21:02 17:09 PT 13.5 INR 1.0 Creatinine Estim Creat Clear Calc Estimated GFR POC Capillary Glucose 457 H 441 H ALT Discharge Plan Discharge Attending physician on discharge: Kvng Phillips Discharging Clinician: Kvng Phillips Patient Disposition: Home, Self-Care Activity: as tolerated Diet: heart healthy Discharge Instructions: Patient does not have any fever or requiring any oxygen, patient is clinically stable, will discharge home today with instruction to avoid general public total of 10days from day she was diagnosed, wear mask and follow social distancing. patient to follow up with her primary care provider as soon as possible, patient is instructed if any symptoms redevelop to go to nearest ER and please let them know you are positive for COVID. Patient Instructions: Antibiotic Form, Acute Nausea and Vomiting (DC), Weakness (DC) Stand Alone Forms: General Discharge Information Follow-up/Referrals: Blanca Mason MD [Primary Care Provider] - Discharge Medications: New cholecalciferol (vitamin D3) [Vitamin D3] 25 mcg (1,000 unit) Tablet 1,000 units PO DAILY Qty: 30 RF: 0 zinc sulfate 50 mg zinc (220 mg) Capsule 220 mg PO QAM Qty: 30 RF: 0 ascorbic acid (vitamin C) [Vitamin C] 500 mg Tablet 500 mg PO DAILY Qty: 30 RF: 0 prednisone 10 mg tablet 10 mg PO DAILY Qty: 20 RF: 0 Continued sifvaoyhjoih-fzarmgzk-kjjqav Tablet 1 tablet PO DAILY RF: 0 PreserVision AREDS [id number] hnxs-[id number]-[id number] tablet 2 tablet PO DAILY RF: 0 atorvastatin 10 mg tablet 10 mg PO DAILY RF: 0 losartan 50 mg tablet 50 mg PO DAILY RF: 0 fenofibrate 160 mg tablet 160 mg PO DAILY RF: 0 Novolin R Regular U-100 Insuln 100 unit/mL solution See Rx Instructions .ROUTE .COMPLEX RF: 0 Novolin N (Semi-Synthetic) 100 unit/mL Suspension 35 unit SUBCUT Q12H RF: 0 gabapentin 300 mg capsule 300 mg PO TID Qty: 90 RF: 3 Date of admission: 08/20/20 16:42 Primary Care Provider: Blanca Mason Admitting Provider: Leny Pendleton Attending physician on admission: Sally Garcia Condition: Stable Quality VTE Prophylaxis VTE prophylaxis: pharmacologic ordered
--- NOTE | 2020-08-22 15:41 | PCCCNOTE ---
Care Coordination: Received phone call from [address] [place] [address] Charge Nurse Isidra who reports Dr. Phillips ready to discharge pt. Called and spoke with pt's spouse Naveen via telephone who is resistant to allowing pt. to return home today. Naveen reports he won't be available to care for pt. until Saturday evening or morning and requested that pt. stay here in the hospital until then. Spoke with pt. who is alert and oriented, reports she is on room air, does not have a fever, and feels well enough to return home to continue isolation in her own home, away from Naveen. Received multiple calls from Naveen and one voicemail that states if there are anymore conversations or situations regarding my and her discharge plan, you hear from my bankruptcy attorney. Spoke with pt. who is agreeable to discharging home today.
[2020-08-22 16:20] VITALS: BP 152/65; PULSE 81; RESP 18; TEMP 37; O2SAT 97
--- NOTE | 2020-08-22 17:24 | PM.IMPN ---
Progress Note: A&P Assessment and Plan (1) Generalized weakness: Code(s): R53.1 - Weakness Status: Acute Assessment and Plan: generalized weakness could be from some dehydration from nausea/vomiting verses COVID-19 and verses reaction from COVID-19 1st vaccine verses gastroenteritis. Continue her light IV fluids at this time since her labs show her to be dehydrated slowly advance diet as tolerated concerned for COVID-19 so we will swab her and she will be placed in isolation at this time ordering COVID-19 inflammatory markers: Ferritin 319, CRP is less than 0.5, LDH 346 PT/OT Continue monitoring. 08/22/20 17:24 08/20 Patient's 65-year-old female who received her 1st dose of COVID vaccine presented emergency depart with complaint generalized fatigue, weakness, loss of taste and smell, shortness of breath, patient is positive COVID 19, patient does not have fever patient is on room air, started the patient on dexamethasone 10mg IV daily 02/20, remdesivir 02/15 and patient has agreed to take convalescent plasma, vitamin C and D as well as zinc, will continue to monitor if patient remains clinically stable, has no fever and does not require any oxygen may discharge in 5 days, I spoke with the patient's and answered all his questions. 08/21patient was positive COVID 19 on 08/19 , patient does not have fever patient is on room air, started the patient on dexamethasone 10mg IV daily 03/23, remdesivir and received convalescent plasma 08/20, patient remains clinically stable, patient states no more diarrhea, will monitor patient 1 more day if there is no fever and not requiring oxygen more than 6 L will discharge the patient home tomorrow. 08/22 patient was positive COVID 19 on 08/19 , patient does not have fever patient is on room air, started the patient on dexamethasone 10mg IV daily 04/20, remdesivir 04/15 and received convalescent plasma 08/20, patient remains clinically stable, patient states no more diarrhea, will monitor patient 2 more day to complete 5days course, if there is no fever and not requiring oxygen more than 6 L will discharge the patient home We. (2) Nausea: Code(s): R11.0 - Nausea Status: Acute Assessment and Plan: Patient continues to have some nausea, not much of an appetite. Also reports loss of taste and smell. CTA abdomen pelvis showed no acute abnormality for her symptoms patient stated that she still has nausea and has been helping with the Zofran And fluids. Patient states she still does not have much of an appetite and she still has no taste or smell. (3) Diarrhea: Code(s): R19.7 - Diarrhea, unspecified Status: Acute Assessment and Plan: the patient did say she was on ciprofloxacin for an infected tooth few weeks ago by her dentist. She only took 5 pills because she started feeling bad and was having a hard time swallowing the large pills. she does report having watery diarrhea about 5-6 per day so we will check a stool sample to rule out C diff C diff pending NS 85 mils an hour for hydration Banatrol plus t.i.d. with meals along with Florastor (4) Breath, shortness: Code(s): R06.02 - Shortness of breath Status: Acute Assessment and Plan: Reports some shortness of breath, trouble catching her breath prior to arrival in some dyspnea with exertion. Could be all secondary to dehydration and generalized weakness from her acute illness. CTA chest showed no acute pulmonary embolism, no pleural effusion, no signs of infection She denies any chest pain. still has shortness of breath at rest continue monitoring. (5) Hypertension: Code(s): I10 - Essential (primary) hypertension St
--- NOTE | 2020-08-22 17:46 | PC.NURSE ---
The patient's brother and came to the hospital because they had concerns regarding her discharge for today. Due to the patient's isolation status, I spoke with them in the [address] [place] [address] waiting room. Naveen's () biggest concern was that he was told by a physician on Saturday since she is COVID positive, she would receive 5 days of care/treatment. Naveen and Byron's main question was when did her COVID treatment/medications start. I stated that I would find out the answer to this question. After answering all other questions to my best ability, I then called Mercedes about this situation. After talking with her, I called Dr. Phillips and explained the situation, which he already knew the 's concerns about discharge today. I asked MD to come and speak [id number] with Naveen and Byron. He came up and spoke to them. Patient is staying for 5 days, which would Saturday. All questions answered by .
[2020-08-22 18:16] LABS: Glucose Point of Care 373 mg/dl (65-105)
[2020-08-22 20:00] VITALS: BP 157/54; PULSE 77; RESP 18; TEMP 37; O2SAT 99
[2020-08-22 21:39] LABS: Glucose Point of Care 329 mg/dl (65-105)
[2020-08-22] MEDS: INSULIN ASPART (*BKC) 100 UNITS/ML 10 UNITS SUB-Q (22:29)
[2020-08-23] VITALS: BP 151/58; PULSE 69; RESP 18; TEMP 36.7; O2SAT 100
[2020-08-23 04:00] VITALS: BP 153/63; PULSE 78; RESP 16; TEMP 36.7; O2SAT 99
[2020-08-23 07:03] LABS: Hematocrit 33.1 % (37.0-47.0); Hemoglobin 11.5 g/dL (12.0-15.0); Mean Corpuscular HGB Conc 34.7 g/dl (32-36); Mean Corpuscular Hemoglobin 29.7 pg (26-34); Mean Corpuscular Volume 85.5 fl (80-100); Mean Platelet Volume 9.6 fl (7.4-10.4); Platelet Count Result 213 k/mm3 (150-375); Red Blood Count 3.87 M/mm3 (4.2-5.4); Red Cell Distribution Width 12.7 % (11.5-14.5); White Blood Count 6.5 K/mm3 (4.5-10.0)
[2020-08-23 07:14] LABS: Alanine Aminotransferase 27 U/L (4-35); Anion Gap 9 mmol/L (8-16); Blood Urea Nitrogen 15 mg/dL (7-17); Calcium 9.3 mg/dL (8.4-10.2); Carbon Dioxide 27 mmol/L (22-30); Chloride 105 mmol/L (98-107); Estimated CRCL calculation 72 ml/min; Estimated Glomerular Filt Rate > 60; Glucose 217 mg/dL (65-105); Potassium 3.6 mmol/L (3.4-5.0); Sodium 141 mmol/L (137-145)
[2020-08-23 07:41] LABS: INR 1.1; Prothrombin Time 13.7 Seconds (11.1-14.7)
[2020-08-23] MEDS: ENOXAPARIN 40 MG/0.4 ML SYRINGE SUB-Q ×2 (08:53→22:22)
[2020-08-23] MEDS: GABAPENTIN 300 MG CAPSULE PO ×3 (08:54→17:09)
[2020-08-23] MEDS: SACCHAROMYCES BOULARDII 250 MG CAPSULE PO ×2 (08:54→17:09)
[2020-08-23] MEDS: INSULIN ASPART (*BKC) 100 UNITS/ML SUB-Q ×2 (08:54→17:49)
[2020-08-23] MEDS: ASCORBIC ACID 500 MG TABLET PO (08:54)
[2020-08-23] MEDS: LOSARTAN POTASSIUM 50 MG TABLET PO (08:54)
[2020-08-23] MEDS: ZINC SULFATE 220 MG CAPSULE PO (08:54)
[2020-08-23] MEDS: CHOLECALCIFEROL 1,000 UNITS TABLET 1000 UNITS PO (08:56)
[2020-08-23] MEDS: PANTOPRAZOLE SODIUM IV 40 MG VIAL IV PUSH ×2 (08:57→22:22)
--- NOTE | 2020-08-23 09:20 | PCNFU ---
Nutrition Follow-Up Complete: Inadequate Oral Intake as related to Nausea/Vomiting as related to Poor po intake reported. Goal: Meet estimated nutritional needs Patient is progressing towards goal. We will continue current goal. Pt current nutrition is DBCC with Glucerna shakes BID and Banatrol Plus TID Last recorded weight is 82.3 kg, no new weight to report. Recommend new weight. Bowel Motility:+BM 08/21 Labs Reviewed:Glu 217, Hct 33.1,Hgb 11.5 Meds Noted:Zinc,Vit D, Florastor, Remdesivir, Decadron,NovoLog, Lovenox, Protonix, Vit C, Zofran. Additional Notes: Nutrition follow up. Patient called due to COVID precautions. Patient is currently on a DBCC, oral intake improving. Diarrhea improving. Patient has been having some elevated blood sugars. Insulin given. No diet questions or concerns at this time. Monitoring: Will monitor every 7 days.
[2020-08-23 10:00] LABS: Glucose Point of Care 203 mg/dl (65-105)
--- NOTE | 2020-08-23 10:52 | PM.IMPN ---
Progress Note: A&P Assessment and Plan (1) Generalized weakness: Code(s): R53.1 - Weakness Status: Acute Assessment and Plan: generalized weakness could be from some dehydration from nausea/vomiting verses COVID-19 and verses reaction from COVID-19 1st vaccine verses gastroenteritis. Patient's 65-year-old female who received her 1st dose of COVID vaccine presented emergency depart with complaint generalized fatigue, weakness, loss of taste and smell, shortness of breath, patient is positive COVID 19, patient does not have fever patient is on room air, started the patient on dexamethasone 10mg IV daily remdesivir And status post convalescent plasma treatment. Finished a course of remdesivir and plan for discharge tomorrow (2) Nausea: Code(s): R11.0 - Nausea Status: Acute Assessment and Plan: Patient continues to have some nausea, not much of an appetite. Also reports loss of taste and smell. CTA abdomen pelvis showed no acute abnormality for her symptoms patient stated that she still has nausea and has been helping with the Zofran And fluids. Patient states she still does not have much of an appetite and she still has no taste or smell. (3) Diarrhea: Code(s): R19.7 - Diarrhea, unspecified Status: Acute Assessment and Plan: the patient did say she was on ciprofloxacin for an infected tooth few weeks ago by her dentist. She only took 5 pills because she started feeling bad and was having a hard time swallowing the large pills. she does report having watery diarrhea about 5-6 per day so we will check a stool sample to rule out C diff C diff pending NS 85 mils an hour for hydration Banatrol plus t.i.d. with meals along with Florastor Off IV fluid C diff toxin indeterminate however diarrhea has already resolved (4) Breath, shortness: Code(s): R06.02 - Shortness of breath Status: Acute Assessment and Plan: Reports some shortness of breath, trouble catching her breath prior to arrival in some dyspnea with exertion. Could be all secondary to dehydration and generalized weakness from her acute illness. CTA chest showed no acute pulmonary embolism, no pleural effusion, no signs of infection She denies any chest pain. still has shortness of breath at rest continue monitoring. (5) Hypertension: Code(s): I10 - Essential (primary) hypertension Status: Acute Assessment and Plan: blood pressure elevated at 152/62 Continue monitoring.Continue losartan blood pressure medication. Make adjustments if necessary. (6) Other hyperlipidemia: Code(s): E78.49 - Other hyperlipidemia Status: Chronic Assessment and Plan: Will hold statin and fenofibrate at this time until she is tolerating a diet better. resume at discharge (7) Type 2 diabetes mellitus without complications: Code(s): E11.9 - Type 2 diabetes mellitus without complications Status: Chronic Assessment and Plan: Patient's hemoglobin A1c is 6.8%. She has not been taking her insulin for the last 2 weeks since she has not been eating very well and feeling ill. Will continue to hold her Novolin N or Novolin R until she is eating and drinking better. Continue Accu-Cheks a.c. HS. Continue sliding scale insulin. Hypoglycemic protocol in place. (8) Thyroid nodule: Code(s): E04.1 - Nontoxic single thyroid nodule Status: Acute Assessment and Plan: Patient found to have a 1.4 cm peripherally calcified left thyroid nodule on her CT. Further evaluation and work up ca
[2020-08-23] MEDS: REMDESIVIR 100 MG/NS 250 ML 100 MG/250 ML BAG 150 MG IVPB (10:58)
[2020-08-23 13:29] VITALS: BP 130/57; PULSE 75; RESP 16; TEMP 37; O2SAT 99
[2020-08-23] MEDS: INSULIN ASPART (*BKC) 100 UNITS/ML 15 UNITS SUB-Q ×2 (13:44→17:48)
[2020-08-23 13:58] LABS: Glucose Point of Care 441 mg/dl (65-105)
[2020-08-23 17:22] LABS: Glucose Point of Care 454 mg/dl (65-105)
[2020-08-23 17:28] VITALS: BP 147/57; PULSE 89; RESP 20; TEMP 37.1; O2SAT 99
[2020-08-23 20:47] LABS: Glucose Point of Care 402 mg/dl (65-105)
[2020-08-23 21:00] VITALS: BP 141/51; PULSE 81; RESP 18; TEMP 36.7; O2SAT 96
[2020-08-23] MEDS: INSULIN HUMAN NPH (*BKC) 100 UNITS/ML 35 UNITS SUB-Q (22:22)
[2020-08-24 00:30] VITALS: BP 148/62; PULSE 73; RESP 18; TEMP 36.5; O2SAT 96
[2020-08-24 04:32] VITALS: BP 149/62; PULSE 75; RESP 18; TEMP 36.4; O2SAT 98
[2020-08-24] MEDS: INSULIN HUMAN NPH (*BKC) 100 UNITS/ML 35 UNITS SUB-Q (06:33)
[2020-08-24 07:00] LABS: Alanine Aminotransferase 30 U/L (4-35); Estimated CRCL calculation 98 ml/min; Estimated Glomerular Filt Rate > 60
[2020-08-24 07:56] LABS: INR 1.1; Prothrombin Time 13.9 Seconds (11.1-14.7)
[2020-08-24 08:00] VITALS: BP 133/67; PULSE 73; RESP 16; TEMP 36.8; O2SAT 100
[2020-08-24 08:12] LABS: Glucose Point of Care 237 mg/dl (65-105)
[2020-08-24] MEDS: PANTOPRAZOLE SODIUM IV 40 MG VIAL IV PUSH (08:58)
[2020-08-24] MEDS: ENOXAPARIN 40 MG/0.4 ML SYRINGE SUB-Q (08:58)
[2020-08-24] MEDS: SACCHAROMYCES BOULARDII 250 MG CAPSULE PO (08:59)
[2020-08-24] MEDS: CHOLECALCIFEROL 1,000 UNITS TABLET 1000 UNITS PO (08:59)
[2020-08-24] MEDS: LOSARTAN POTASSIUM 50 MG TABLET PO (08:59)
[2020-08-24] MEDS: ASCORBIC ACID 500 MG TABLET PO (08:59)
[2020-08-24] MEDS: ZINC SULFATE 220 MG CAPSULE PO (08:59)
[2020-08-24] MEDS: GABAPENTIN 300 MG CAPSULE PO ×2 (08:59→12:49)
[2020-08-24] MEDS: INSULIN ASPART (*BKC) 100 UNITS/ML 15 UNITS SUB-Q ×2 (09:02→12:48)
[2020-08-24] MEDS: INSULIN ASPART (*BKC) 100 UNITS/ML SUB-Q ×2 (09:02→12:48)
[2020-08-24] MEDS: REMDESIVIR 100 MG/NS 250 ML 100 MG/250 ML BAG 150 MG IVPB (10:03)
[2020-08-24 12:00] VITALS: BP 142/64; PULSE 81; RESP 16; TEMP 37.2; O2SAT 99
[2020-08-24 12:43] LABS: Glucose Point of Care 364 mg/dl (65-105)
--- NOTE | 2020-08-24 12:44 | PM.DS ---
DS: Admitting Diagnosis Admitting Diagnosis Admitting Diagnosis: acute COVID infection DS: Discharge Diagnosis Discharge Diagnosis (1) Adrenal nodule: Code(s): E27.8 - Other specified disorders of adrenal gland Status: Acute (2) Thyroid nodule: Code(s): E04.1 - Nontoxic single thyroid nodule Status: Acute (3) Diarrhea: Code(s): R19.7 - Diarrhea, unspecified Status: Acute (4) Hypertension: Code(s): I10 - Essential (primary) hypertension Status: Acute (5) Generalized weakness: Code(s): R53.1 - Weakness Status: Acute (6) Nausea: Code(s): R11.0 - Nausea Status: Acute (7) Mononeuropathy due to underlying disease: Code(s): G59 - Mononeuropathy in diseases classified elsewhere Status: Acute (8) Other hyperlipidemia: Code(s): E78.49 - Other hyperlipidemia Status: Chronic (9) Thoracic disc disease: Code(s): M51.9 - Unspecified thoracic, thoracolumbar and lumbosacral intervertebral disc disorder Status: Chronic (10) Type 2 diabetes mellitus without complications: Code(s): E11.9 - Type 2 diabetes mellitus without complications Status: Chronic (11) COVID-19 virus infection: Code(s): U07.1 - COVID-19 Status: Acute DS: Summary Hospital Course Hospital Course: (1) Generalized weakness: generalized weakness could be from some dehydration from nausea/vomiting verses COVID-19 and verses reaction from COVID-19 1st vaccine verses gastroenteritis. Patient's 65-year-old female who received her 1st dose of COVID vaccine presented emergency depart with complaint generalized fatigue, weakness, loss of taste and smell, shortness of breath, patient is positive COVID 19, patient does not have fever patient is on room air, started the patient on dexamethasone 10mg IV daily remdesivir And status post convalescent plasma treatment. Finished a 5 day course of remdesivir and will continue dexamethasone 6 mg p.o. daily for 5 more days at the time of discharge (2) Nausea: Patient continues to have some nausea, not much of an appetite. Also reports loss of taste and smell. CTA abdomen pelvis showed no acute abnormality for her symptoms patient stated that she still has nausea and has been helping with the Zofran And fluids. Patient states she still does not have much of an appetite and she still has no taste or smell. (3) Diarrhea: the patient did say she was on ciprofloxacin for an infected tooth few weeks ago by her dentist. She only took 5 pills because she started feeling bad and was having a hard time swallowing the large pills. she does report having watery diarrhea about 5-6 per day so we will check a stool sample to rule out C diff C diff pending NS 85 mils an hour for hydration Banatrol plus t.i.d. with meals along with Florastor Off IV fluid C diff toxin indeterminate however diarrhea has already resolved (4) Breath, shortness: Reports some shortness of breath, trouble catching her breath prior to arrival in some dyspnea with exertion. Could be all secondary to dehydration and generalized weakness from her acute illness. CTA chest showed no acute pulmonary embolism, no pleural effusion, no signs of infection She denies any chest pain. still has shortness of breath at rest continue monitoring. (5) Hypertension: blood pressure elevated at 152/62 Continue monitoring.Continue losartan blood pressure medication. Make adjustments if necessary. (6) Other hyperlipidemia: Will hold statin and fenofibrate at this time until she is tolerating a diet better. resume at discharge [facility]
[2020-08-24] MEDS: FLUCONAZOLE 150 MG TABLET PO (13:32)
== END 2020-08-24 14:10 | disposition home or self-care (01) | DRG 179 ==
LOC: ANHED 08-18 01:15 → ANH2MED 08-18 01:38 → ANH3MEDSUR 08-18 12:00
PROVIDERS: Emergency Medicine; Nurse Practitioner; Physician Assistant; Admitting Provider Internal Medicine; Emergency Provider Family Medicine; PCP Family Medicine; Visit Provider Family Medicine
DX: U07.1 COVID-19 (principal); E27.8 Other specified disorders of adrenal gland; E11.41 Type 2 diabetes mellitus with diabetic mononeuropathy; E04.1 Nontoxic single thyroid nodule; R53.1 Weakness; R11.0 Nausea; R19.7 Diarrhea, unspecified; R06.02 Shortness of breath; I10 Essential (primary) hypertension; E78.49 Other hyperlipidemia; M51.9 Unspecified thoracic, thoracolumbar and lumbosacral intervertebral disc disorder; Z79.4 Long term (current) use of insulin; Z79.899 Other long term (current) drug therapy
CPT/HCPCS: 36415; 36430; 71046; 71275; 74177; 80048; 80053; 81001; 82565; 82728; 82948; 83036; 83605; 83615; 83735; 84460; 85025; 85027; 85610; 86140; 86900; 86901; 87045; 87046; 87086; 87088; 87324; 87427; 87493; 93005; 96361; 96372; 96374; 96375; 96376; 97161; 97165; 99285; A9270; C9113; C9803; G0378; J1100; J1650; J1815; J2405; J7030; J7050; P9059; Q9967; U0003; U0005

== ENCOUNTER → 2021-06-05 09:35 | Outpatient (CLI) | payer MEDICARE, SELFPAY ==
--- NOTE | ~2021-06-05 | XR_ITS ---
XR hip RT 2V w AP pelvis DATE: 06/05/2021 09:55 INDICATION: Right hip pain TECHNIQUE: AP pelvis. AP and lateral views of the right hip COMPARISON: None FINDINGS: Diffuse osteopenia. No fracture or dislocation, avascular necrosis or bone destruction of the right hip. There is mild ri ght hip osteoarthritis. The pubic symphysis and sacroiliac joints are intact. No pelvic fracture or bone destruction. Degenerative disc disease and included L4-5 and L5-S1. IMPRESSION: Mild right hip osteoarthritis Reviewed, dictated and finalized at location A.
--- NOTE | ~2021-06-05 | XR_ITS ---
XR thoracic spine 2V DATE: 06/05/2021 09:55 INDICATION: Back pain TECHNIQUE: Standing AP, lateral and swimmer views COMPARISON: 12/26/2013 MR thoracic spine FINDINGS: There is moderate degenerative spurring at the mid and lower thoracic spine. The thoracic pedicles are intact. No fracture or bone destruction is detected. Osteopenia. No paraspinal soft tissue thickening. IMPRESSION: Mild to moderate degenerative spurring Osteopenia Reviewed, dictated and finalized at location A.
--- NOTE | ~2021-06-05 | XR_ITS ---
XR lumbar spine 2-3V DATE: 06/05/2021 09:55 INDICATION: Low back pain TECHNIQUE: AP, lateral, coned lateral lumbosacral views COMPARISON: 11/06/2014 MRI lumbar spine / lumbar spine FINDINGS: Normal alignment of the lumbar spine. There is moderate degenerative disease at L1-2, L2-3 and mild degenerative disease at L3-4, L4-5 and L5-S1. There is degenerative change at the apophyseal joints in the mid and lower lumbar and lumbosacral are a in particular. No fracture or bone destruction or spondylolisthesis. The lumbar pedicles are intact. The sacroiliac joints appear normal. Status post cholecystectomy. IMPRESSION: Mild to moderate degenerative disc disease Reviewed, dictated and finalized at location A.
== END ==
PROVIDERS: PCP Family Medicine; Visit Provider Physician Assistant Medical
DX: M16.11 Unilateral primary osteoarthritis, right hip (principal); M85.88 Other specified disorders of bone density and structure, other site; M51.36 Other intervertebral disc degeneration, lumbar region
CPT/HCPCS: 72070; 72100; 73502

== ENCOUNTER → 2022-03-02 07:53 | Outpatient (CLI) | payer MEDICARE, SELFPAY ==
--- NOTE | ~2022-03-02 | MR_ITS ---
MRI of the lumbar spine Clinical History: Radiculopathy Technique: Axial T2-weighted images, and sagittal T1-weighted, T2-weighted, and T2 fat-sat images wer e acquired. COMPARISON: 11/06/2014 Findings: There is no fracture or subluxation of the lumbar spine. Vertebral bodies maintain normal h eight and alignment. No bone marrow signal abnormality seen. At L1-L2 and L2-L3, there is no disc bulge or herniation. No spinal canal stenosis or neural foramina l narrowing at these levels. At L3-L4, there is minimal disc desiccation without significant bulge or herniation. Facet arthropath y is present. No spinal canal stenosis or neural foraminal narrowing. At L4-L5, there is mild disc bulge with facet arthropathy. No spinal canal stenosis. There is severe bilateral neural foraminal narrowing. At L5-S1, there is no disc bulge or herniation. There is facet arthropathy. No spinal canal stenosis or neural foraminal narrowing. Paravertebral soft tissues are unremarkable. Impression: Severe bilateral neural foraminal narrowing at L4-L5, as detailed above. Additional minimal degenerative changes, as detailed above. Reviewed, dictated and finalized at location . 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 Additional minimal degenerative changes, as detailed above.
== END ==
PROVIDERS: PCP Family Medicine; Visit Provider Physical Medicine & Rehabilitation
DX: M54.16 Radiculopathy, lumbar region (principal)
CPT/HCPCS: 72148

== ENCOUNTER → 2022-10-04 09:32 | Outpatient (CLI) | payer MEDICARE, SELFPAY ==
--- NOTE | ~2022-10-04 | XR_ITS ---
EXAMINATION: XR wrist LT min 3V, XR wrist RT min 3V DATE: 10/04/2022 10:08 INDICATION: Left wrist pain TECHNIQUE: Posteroanterior, ulnar deviation, oblique, and lateral views of the wrists were obtained. COMPARISON: Right wrist radiographs from the same date FINDINGS: Bone alignment is normal. There is no fracture. There is mild osteoarthritis at the bilater al triscaphe and first carpal metacarpal joints. There is mild asymmetric ulnar-sided soft tissue swe lling of the left wrist of unclear etiology. IMPRESSION: 1. Subtle asymmetric ulnar-sided soft tissue swelling of the left wrist of unclear etiology. 2. Mild osteoarthritis of the wrists. Reviewed, dictated and finalized at location A. IMPRESSION: 1. Subtle asymmetric ulnar-sided soft tissue swelling of the left wrist of uncl ear etiology. 2. Mild osteoarthritis of the wrists.
== END ==
PROVIDERS: PCP Family Medicine; Visit Provider Physical Medicine & Rehabilitation
DX: M25.531 Pain in right wrist (principal); M25.532 Pain in left wrist; M19.032 Primary osteoarthritis, left wrist; M19.031 Primary osteoarthritis, right wrist; M25.432 Effusion, left wrist
CPT/HCPCS: 73110

== ENCOUNTER → 2023-04-04 11:16 | Outpatient (CLI) | payer MEDICARE, SELFPAY ==
--- NOTE | ~2023-04-04 | XR_ITS ---
Right elbow Technique: AP, oblique, and lateral views were obtained. Clinical History: Pain Findings: No acute fracture or dislocation is seen. Osseous alignment is anatomic. Joint spaces are p reserved. There is no displacement of the fat pads, and soft tissues are unremarkable. Impression: Unremarkable radiographs. Reviewed, dictated and finalized at [facility]. RMAN Impression: Unremarkable radiographs.
== END ==
PROVIDERS: PCP Physical Medicine & Rehabilitation Pain Medicine; Visit Provider Physical Medicine & Rehabilitation Pain Medicine
DX: M77.11 Lateral epicondylitis, right elbow (principal)
CPT/HCPCS: 73080

== ENCOUNTER 2023-07-05 13:46 | Outpatient (RCR) | payer MEDICARE, SELFPAY ==
--- NOTE | 2023-07-05 14:55 | OTOPEVDC ---
Assessment and note entered by Stevan Flores, FREDERIC/Sandy, CHT Evaluation Information Diagnosis right trigger thumb, right CMC OA, left wrist ganglion cyst Subjective Information Patient is right hand dominant and retired. She reports she does a lot of sewing and takes care of the typical housework of sweeping, mopping, dishes, etc. Functionally reporting a decline in gripping and pinching tasks. She notices her thumb will get stuck and be worse if she cleans all of her floors on the same day. She reports that since her injection on 06/12/23, her thumb has not been painful and she no longer experiences triggering. She has a thumb spica brace for the right hand and a wrist cock up for the left. Reported Pain Level Pain Score 0: Self Report Assessment OT Clinical Summary Patient referred to OT with dx of right trigger thumb, right CMC OA, and left wrist ganglion cyst. 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 She reports no pain. States the base of her right thumb can be sore at the end of the day. She is no longer experiencing symptoms of a trigger thumb. She has immobilizers for all of the affected structures. Educated on ROM HEP for the wrist and thumb. No further skilled OT indicated at this time. Plan of Care OT Services Indicated No
== END 2023-07-05 16:04 | disposition home or self-care (01) ==
LOC: ANHOT 13:46
PROVIDERS: PCP Family Medicine; Visit Provider Plastic Surgery
DX: M65.311 Trigger thumb, right thumb (principal); M18.11 Unilateral primary osteoarthritis of first carpometacarpal joint, right hand; M67.432 Ganglion, left wrist
CPT/HCPCS: 97110

== ENCOUNTER 2023-09-24 11:59 | Outpatient (CLI) | payer MEDICARE, SELFPAY ==
--- NOTE | ~2023-09-24 | XR_ITS ---
EXAMINATION: XR abdomen obstructive series DATE: 09/24/2023 12:18 INDICATION: Abdomen pain TECHNIQUE: Supine and upright views of the abdomen. FINDINGS: No prior studies for comparison. The visualized lung parenchyma is normal.. There is a nonobstructive bowel gas pattern. Gas and stool are seen throughout the colon to the level of the rectum. There is no free air. There are cholecyst ectomy clips. Calcifications in the pelvis are believed to be phleboliths. IMPRESSION: 1. No acute abdominal abnormality. Reviewed, dictated and finalized at location B.
== END 2023-09-24 12:00 ==
LOC: MICIMG 12:00
PROVIDERS: PCP Pediatrics Pediatric Cardiology; Visit Provider Family Medicine
DX: R10.9 Unspecified abdominal pain (principal)
CPT/HCPCS: 74019

== ENCOUNTER 2023-12-05 09:19 | Outpatient (CLI) | payer MEDICARE, SELFPAY | END 2023-12-05 09:20 | disposition home or self-care (01) | LOC: ANHAUDIO 09:21 | PROVIDERS: PCP Pediatrics Pediatric Cardiology; Visit Provider Family Medicine | DX: H93.13 Tinnitus, bilateral (principal); H91.90 Unspecified hearing loss, unspecified ear | CPT/HCPCS: 92557; 92567 ==

== ENCOUNTER 2024-01-29 08:50 | Outpatient (CLI) | payer MEDICARE, SELFPAY ==
--- NOTE | ~2024-01-29 | XR_ITS ---
Left foot Technique: AP and lateral views were obtained. Clinical History: Polyarthralgia Findings: No acute fracture or dislocation is seen. Osseous alignment is anatomic. Minimal degenerati ve changes are present scattered in the interphalangeal joints of the toes. Soft tissues are unremark able. Impression: Minimal degenerative changes in the toes, as above. Reviewed, dictated and finalized at location . [employer] MEDICAID Impression: Minimal degenerative changes in the toes, as above.
--- NOTE | ~2024-01-29 | XR_ITS ---
Bilateral Hands Technique: Bilateral PA and lateral views, and ball-catcher's view were obtained. Clinical History: Polyarthralgia Findings: No acute fracture or dislocation is seen. Osseous alignment is anatomic. There is mild dege nerative change of the bilateral first CMC joints. There are mild degenerative changes scattered at t he interphalangeal joints of the fingers bilaterally.. Soft tissues are unremarkable. Impression: Mild degenerative changes, as above. Reviewed, dictated and finalized at location M. RONMENT ARTIST Impression: Mild degenerative changes, as above.
--- NOTE | ~2024-01-29 | XR_ITS ---
AP and oblique views of the bilateral ribs, and PA chest Clinical History: Pain Findings: No rib fracture is seen. Osseous alignment is anatomic. Lungs are clear, without focal cons olidation or pleural effusion. Cardiomediastinal contour is within normal limits. Soft tissues are un remarkable. Impression: No rib fracture is seen. Clear lungs. Reviewed, dictated and finalized at [facility]. AIN INSPECTOR Impression: No rib fracture is seen. Clear lungs.
--- NOTE | ~2024-01-29 | XR_ITS ---
Lumbosacral Spine: AP and lateral views Clinical History: Pain Findings: The normal lordotic curve is maintained. The vertebral bodies and posterior elements are i ntact. The intervertebral disc spaces are preserved. There is severe facet arthropathy from L3 throu gh S1. The sacroiliac joints are normally outlined. Impression: Severe facet arthropathy at the lower lumbar spine, as above. Reviewed, dictated and finalized at location . 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
--- NOTE | ~2024-01-29 | XR_ITS ---
Right foot Technique: AP and lateral views were obtained. Clinical History: Polyarthralgia Findings: No acute fracture or dislocation is seen. There is mild degenerative change of the first MT P joint. There are mild degenerative changes of the interphalangeal joint of the toes. Soft tissues a re unremarkable. Impression: Mild degenerative changes, as above. Reviewed, dictated and finalized at location . 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
== END 2024-01-29 08:51 | disposition home or self-care (01) ==
LOC: MICIMG 08:51
PROVIDERS: PCP Family Medicine; Visit Provider Physician Assistant
DX: R07.81 Pleurodynia (principal); M47.817 Spondylosis without myelopathy or radiculopathy, lumbosacral region; M19.042 Primary osteoarthritis, left hand; M19.041 Primary osteoarthritis, right hand; M79.672 Pain in left foot
CPT/HCPCS: 71111; 72100; 73130; 73620

== ENCOUNTER 2024-08-25 10:52 | Emergency (ER) | payer OTHER, MEDICARE, SELFPAY ==
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
[2024-08-25 10:51] VITALS: BP 184/96; PULSE 99; RESP 18; TEMP 36.4; O2SAT 97
--- NOTE | 2024-08-25 11:10 | PC.NURSE ---
Bedside report given to this RN by Sagrario CESPEDES.
--- OUTSIDE RECORDS SUMMARY | 2024-08-25 11:47 | XMS_ITS | Clinical Summary ---
Author Organization [facility] [place] [facility] [place] [facility] [place] Address [address] [place] [id number] Care Team Providers Care Manager Of Drilling Name Role Phone Blanca Mason MD Primary Care Provider [phone] Crescencio Juan MD Unavailable [phone] Lizet Swain MD Unavailable [phone] Allergies Active Allergy Reactions Criticality Noted Date Comments Empagliflozin Unknown High 11/12/2022 Nitrofurantoin Stomach upset Low 01/23/2024 Penicillins Seizures,Mental stat us changes High Reaction: seizures, , Reaction: Confusion, Prochlorperazine Other (See comments),Mental status changes High Reaction: mixed with penicillins cause seizure, , Reaction: mixed with penicillins cause seizure, , Reaction: mixed with penicillins cause seizure, , Reaction: Confusion, Medications pen needle, diabetic (BD Ultra-Fine Kari Pen Needle) 32 gauge x 32 needleIndicatio ns:Type 2 diabetes mellitus with hyperglycemia, with long-term current use of insulin (HCC) Pen needles 4 x daily 400 each 3 0 Active aspirin 81 mg enteric coated tablet Take 1 tablet (81 mg total) by mouth daily Active gabapentin (NEURONTIN) 300 mg capsule Take 1 capsule (300 mg total) by mouth 3 (three) times a day 90 capsule 3 1 Active zinc 50 mg tablet Take 50 mg by mouth daily Active ascorbic acid (VITAMIN C) 1,000 mg tablet Take 1 tablet (1,000 mg total) by mouth daily Active vitamin D3-vitamin K2, MK4, 1,000-100 unit-mcg tablet Take 1,000 mg by mouth daily Active losartan (COZAAR) 50 mg tabletIndicatio ns:Hypertension associated with diabetes ([facility]) Take 1 tablet (50 mg total) by mouth daily 3 Active insulin regular (NovoLIN R) 100 unit/mL vial for injectionIndica tions:Type 2 diabetes mellitus with hyperglycemia, with long-term current use of insulin ([facility]) Inject 20-38 Units under the skin 3 (three) times a day before meals relion reg insulin mad daily dose 114 units 40 mL 3 3 Active insulin NPH (HumuLIN N, NovoLIN N) 100 unit/mL (3 mL) pen for injection Inject 35 Units under the skin 2 (two) times a day With breakfast and at bedtime Active OneTouch Verio test strips stripIndication s:Type 2 diabetes mellitus with hyperglycemia, with long-term current use of insulin ([facility]) USE 1 STRIP TO CHECK GLUCOSE TWICE DAILY 200 each 4 Active insulin syringe-needle U-100 1/2 mL 31 gauge x 15/64 syringe USE 1 THREE TIMES DAILY BEFORE MEAL(S) AND NIGHTLY 200 each 1 4 Active tobramycin-dexA METHasone (TOBRADEX) ophthalmic solution INSTILL 1 DROP INTO EACH EYE ONCE DAILY 5 Active atorvastatin (LIPITOR) 10 mg tabletIndicatio ns:Hyperlipidem ia associated with type 2 diabetes mellitus (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 Had recent imaging that displayed CMC spurring and degenerative changes. She does use a thumb spica splint as needed, which offers benefit. Has previously received CMC injection, which was beneficial. Discussed potential repeat injection, which she defers at this time, as symptoms are mild and manageable. Did discuss CMC brace, symptoms become too bothersome. Polyarthralgia 01/23/2024 Overview (05/14/2024): Labs 01/23/2024: CBC WNL; CMP: Glucose 182, but otherwise WNL; CRP/ESR WNL Avise 01/23/2024: Positive GAGE 1:320 in a dense fine speckled pattern, but otherwise negative Right foot x-ray 01/29/1024: Mild 1st MTP oa. Oa of the IP joints of the toes. Left foot x-ray 01/29/1024: Minimal IP OA Bilateral hand x-ray 01/29/1024: Bilateral 1st CMC oa. Mild scattered IP OA bilaterally Bilateral rib x-ray 01/29/2024: WNL. Clear lungs. US right hand/wrist (03/17/24): Scapholunate joint: Spurring of the lunate. Dorsal wrist: Grade 1 effusion and grade 1 power doppler. Radial scaphoid joint: Grade 1 power doppler with spurring of the lunate. 3rd MCP joint: Small grade 1 power doppler. 2nd PIP joint: Moderate synovial thickening. 3rd PIP joint: Grade 1 power doppler. 1st CMC joint: Marked spurring. Assessment & Plan (05/15/2024 10:55 AM CDT): Assessment: 68-year-old female with several joint complaints, including chronic pain in the right elbow (lateral epicondyle), right wrist, and right CMC joint. Pain likely due to mechanical/degenerative causes, given her history of joint pain and response to previous injections. No obvious evidence of autoimmune disease or inflammatory arthritis on exam, though this remains a possibility. Chronic lower back pain secondary to degenerative disc disease, with prior epidural steroid injections providing relief for several years. Bilateral ankle pain after prolonged sitting, resolving with movement. Bilateral rib pain intermittently, likely non-inflammatory. Chronic dry eyes and occasional non-tender mouth sores of unknown significance Family history of psoriasis in mother and siblings; no personal history of psoriasis. Labs 01/23/1024 displayed a positive GAGE 1:320 in a dense fine speckled pattern with otherwise negative Avise and ESR/CRP WNL. Right hand/wrist ultrasound, as above, did display grade 1 Doppler/effusions across few joints with no other obvious evidence to suggest active inflammation. X-rays of the hands and feet, as above, did display scattered degenerative changes without erosions. At this time, do not see obvious evidence to suggest an underlying autoimmune disease. Suspect that majority of her joint complaints are due to mechanical/degenerative causes. Will continue management of symptoms with gabapentin, Tylenol Arthritis, Voltaren gel, and Aspercreme. Discussed trial of prescription nsaid, such as mobic. She defers at this time, has symptoms are manageable on current treatment regimen. Discussed possible CMC injection, CMC joint becomes too bothersome. She has had previous injection and was beneficial. Defers repeat injection at this time, symptoms are manageable. Continue CMC brace. Otherwise, will have her follow up as needed or if any new symptoms arise. Seen with Dr. Juan. Assessment & Plan (01/23/2024 12:18 PM PHARMACY TECHNICIAN): Assessment: 68-year-old female with several joint complaints, including chronic pain in the right elbow (lateral epicondyle), right wrist, and right CMC joint. Pain likely due to mechanical/degenerative causes, given her history of joint pain and response to previous injections. No obvious evidence of autoimmune disease or inflammatory arthritis on exam, though this remains a possibility. Chronic lower back pain secondary to degenerative disc disease, with prior epidural steroid injections providing relief for several years. Bilateral ankle pain after prolonged sitting, resolving with movement. Bilateral rib pain intermittently, likely non-inflammatory. Chronic dry eyes and occasional non-tender mouth sores of unknown significance Family history of psoriasis in mother and siblings; no personal history of psoriasis. Plan: Workup: Obtain serologic tests to evaluate for autoimmune diseases and inflammatory arthritis. Order radiographs of the affected joints, including the right hand/wrist, to assess for structural changes. Right hand/wrist ultrasound to evaluate for signs of inflammation or early signs of inflammatory arthritis. Medications: Continue current pain management with gabapentin, Tylenol Arthritis, Voltaren gel, and Aspercreme. Pending workup results, may consider prescribing NSAIDs for pain management, especially if signs of inflammation are found. Follow-up: Schedule a follow-up appointment in 2 weeks to review workup results and assess progress. Sooner follow-up if symptoms worsen or additional concerns arise. Seen with Dr. Juan. Dizziness and giddiness 01/23/2024 Fatigue 12/18/2023 Multinodular goiter 06/12/2021 Assessment & Plan (10/28/2023 12:54 PM CDT): Performed a follow-up thyroid ultrasound in office today noted overall stable left thyroid nodules No Compressive symptoms Assessment & Plan (03/15/2023 10:00 AM PHARMACY TECHNICIAN): Last thyroid ultrasound 07/2022 Stable thyroid nodules No compressive symptoms Will recheck thyroid ultrasound during next follow-up visit Assessment & Plan (08/06/2022 9:49 PM CDT): Performed a follow up thyroid ultrasoudn in office today - noted overall stable thyroid nodules No compressive symptoms Recheck TSH Assessment & Plan (10/30/2021 1:40 PM CDT): stable left thyroid nodules - 06/2021 No compressive symptoms Last TSH WNL Assessment & Plan (06/12/2021 12:55 PM CDT): Performed a follow-up thyroid ultrasound in office today Noted stable left thyroid nodules No compressive symptoms Recheck TSH Thyroid nodule incidentally noted on imaging bessy dy 10/03/2020 Assessment & Plan (12/26/2020 12:54 PM PHARMACY TECHNICIAN): Performed a thyroid ultrasound in office today Noted 2 left thyroid nodule Both nodules approx 1.45 cm, one has calcified wall and another one solid hypoechoic No compressive symptoms Follow up thyroid ultrasound will be done in 6 months and consider FNA in future If nodules continues to grow Assessment & Plan (10/03/2020 12:56 PM CDT): Will perform thyroid ultrasound during next follow-up visit Coronavirus infection 09/13/2020 Elevated liver enzymes 08/10/2019 Assessment & Plan (08/10/2019 12:51 PM CDT): On recent lab results, noted very slight elevation in liver enzymes possible fatty liver disease Explained pt to work on portion, carb controled diet and increase physical activity and work on healthy weight loss Recheck LFT's in 4 weeks Hyperlipidemia associated with type 2 diabetes george mccoy 02/25/2017 Assessment & Plan (10/28/2023 12:54 PM CDT): Pt on statin therapy tolerating well Assessment & Plan (03/15/2023 10:00 AM PHARMACY TECHNICIAN): Pt on statin therapy tolerating well Assessment & Plan (08/06/2022 9:46 PM CDT): Pt on statin therapy tolerating well Assessment & Plan (10/30/2021 1:38 PM CDT): Pt on statin therapy tolerating well Assessment & Plan (06/12/2021 12:54 PM CDT): Pt on statin therapy tolerating well Assessment & Plan (12/26/2020 11:55 AM PHARMACY TECHNICIAN): Pt on statin therapy tolerating well Assessment & Plan (10/03/2020 11:43 AM CDT): Pt on statin therapy tolerating well Assessment & Plan (06/13/2020 3:49 PM CDT): Pt on statin therapy tolerating well Assessment & Plan (02/22/2020 12:51 PM PHARMACY TECHNICIAN): Pt on statin therapy tolerating well Assessment & Plan (11/30/2019 3:55 PM CDT): Pt on statin therapy tolerating well Assessment & Plan (08/10/2019 12:47 PM CDT): Pt on statin therapy tolerating well Assessment & Plan (06/29/2019 5:21 PM CDT): Pt on statin therapy tolerating well Assessment & Plan (04/20/2019 3:54 PM CDT): Pt on statin therapy tolerating well Assessment & Plan (03/10/2019 10:20 AM PHARMACY TECHNICIAN): Pt on statin therapy tolerating well Assessment & Plan (10/06/2018 10:25 PM CDT): Pt on statin therapy tolerating well Assessment & Plan (04/09/2018 10:39 PM PHARMACY TECHNICIAN): Lipid abnormalities are worsening. Nutritional counseling was provided. and Pharmacotherapy as ordered. Lipids will be reassessed in 6 months. Assessment & Plan (09/23/2017 8:06 PM CDT): Pt. On fenofibrate, discussed about statin - benefits and risks Pt. Not willing to try statin in past, will readdress this during her next follow up visit Assessment & Plan (02/25/2017 9:33 AM PHARMACY TECHNICIAN): Pt. On fenofibrate, discussed about statin - benefits and risks Pt. Is not ready to start statin therapy at this time, she said she will think about it Obesity (BMI 30.0-34.9) 11/05/2016 Assessment & Plan (10/30/2021 1:39 PM CDT): Chronic, worsening Discussed about healthy lifestyle habits advise to work on healthy diet, avoid processed foods , increase vegetables and protein and cut back on carb portions and also avoid fruit juices and regular soda and desserts Increase physical activity , recommend at least 150 min of aerobic activity per week and include resistance training 2 x weekly Assessment & Plan (06/12/2021 12:55 PM CDT): Chronic, worsening Discussed about healthy lifestyle habits advise to work on healthy diet, avoid processed foods , increase vegetables and protein and cut back on carb portions and also avoid fruit juices and regular soda and desserts Increase physical activity , recommend at least 150 min of aerobic activity per week and include resistance training 2 x weekly Assessment & Plan (12/26/2020 11:55 AM PHARMACY TECHNICIAN): Counseled on diet and exercise Assessment & Plan (10/03/2020 11:44 AM CDT): Counseled on diet and exercise Assessment & Plan (06/13/2020 3:49 PM CDT): Chronic, worsening Discussed about healthy lifestyle habits advise to work on healthy diet, avoid processed foods , increase vegetables and protein and cut back on carb portions and also avoid fruit juices and regular soda and desserts Increase physical activity , recommend at least 150 min of aerobic activity per week and include resistance training 2 x weekly Assessment & Plan (02/22/2020 12:51 PM PHARMACY TECHNICIAN): Chronic, slowly improving Discussed about healthy lifestyle habits advise to work on healthy diet, avoid processed foods , increase vegetables and protein and cut back on carb portions and also avoid fruit juices and regular soda and desserts Increase physical activity , recommend at least 150 min of aerobic activity per week and include resistance training 2 x weekly Assessment & Plan (11/30/2019 3:55 PM CDT): Chronic, improving slowly Discussed about healthy lifestyle habits advise to work on healthy diet, avoid processed foods , increase vegetables and protein and cut back on carb portions and also avoid fruit juices and regular soda and desserts Increase physical activity , recommend at least 150 min of aerobic activity per week and include resistance training 2 x weekly Assessment & Plan (08/10/2019 12:50 PM CDT): Chronic, worsening Discussed about healthy lifestyle habits advise to work on healthy diet, avoid processed foods , increase vegetables and protein and cut back on carb portions and also avoid fruit juices and regular soda and desserts Increase physical activity , recommend at least 150 min of aerobic activity per week and include resistance training 2 x weekly Assessment & Plan (06/29/2019 5:21 PM CDT): Chronic, worsening Discussed about healthy lifestyle habits advise to work on healthy diet, avoid processed foods , increase vegetables and protein and cut back on carb portions and also avoid fruit juices and regular soda and desserts Increase physical activity , recommend at least 150 min of aerobic activity per week and include resistance training 2 x weekly Assessment & Plan (04/20/2019 3:55 PM CDT): Chronic, worsening Discussed about healthy lifestyle habits advise to work on healthy diet, avoid processed foods , increase vegetables and protein and cut back on carb portions and also avoid fruit juices and regular soda and desserts Increase physical activity , recommend at least 150 min of aerobic activity per week and include resistance training 2 x weekly Assessment & Plan (03/10/2019 10:20 AM PHARMACY TECHNICIAN): Chronic, worsening Discussed about healthy lifestyle habits advise to work on healthy diet, avoid processed foods , increase vegetables and protein and cut back on carb portions and also avoid fruit juices and regular soda and desserts Increase physical activity , recommend at least 150 min of aerobic activity per week and include resistance training 2 x weekly Assessment & Plan (10/06/2018 10:25 PM CDT): Obesity is unchanged. Discussed the patient's BMI. The BMI is above average; BMI management plan is completed. General weight loss/lifestyle modification strategies discussed (elicit support from others; identify saboteurs; non-food rewards, etc). Behavioral treatment: stress management. Diet interventions: moderate (500 kCal/d) deficit diet. Informal exercise measures discussed, e.g. taking stairs instead of elevator. Regular aerobic exercise program discussed. Assessment & Plan (04/09/2018 10:39 PM PHARMACY TECHNICIAN): Obesity is worsening. Discussed the patient's BMI. The BMI is above average; BMI management plan is completed. General weight loss/lifestyle modification strategies discussed (elicit support from others; identify saboteurs; non-food rewards, etc). Behavioral treatment: stress management. Diet interventions: moderate (500 kCal/d) deficit diet. Informal exercise measures discussed, e.g. taking stairs instead of elevator. Regular aerobic exercise program discussed. Assessment & Plan (09/23/2017 8:05 PM CDT): Obesity is unchanged. Discussed the patient's BMI. The BMI is above average; BMI management plan is completed. General weight loss/lifestyle modification strategies discussed (elicit support from others; identify saboteurs; non-food rewards, etc). Behavioral treatment: stress management. Diet interventions: moderate (500 kCal/d) deficit diet. Informal exercise measures discussed, e.g. taking stairs instead of elevator. Regular aerobic exercise program discussed. Assessment & Plan (02/25/2017 9:32 AM PHARMACY TECHNICIAN): Obesity is improving with treatment. Discussed the patient's BMI. The BMI is above average; BMI management plan is completed. General weight loss/lifestyle modification strategies discussed (elicit support from others; identify saboteurs; non-food rewards, etc). Behavioral treatment: stress management. Diet interventions: moderate (500 kCal/d) deficit diet. Informal exercise measures discussed, e.g. taking stairs instead of elevator. Regular aerobic exercise program discussed. Assessment & Plan (11/05/2016 9:42 PM CDT): Obesity is improving with lifestyle modifications. Discussed the patient's BMI. The BMI is above average; BMI management plan is completed. General weight loss/lifestyle modification strategies discussed (elicit support from others; identify saboteurs; non-food rewards, etc). Behavioral treatment: stress management. Diet interventions: moderate (500 kCal/d) deficit diet. Informal exercise measures discussed, e.g. taking stairs instead of elevator. Regular aerobic exercise program discussed. Diabetic peripheral neuropathy 11/05/2016 Assessment & Plan (03/15/2023 10:00 AM PHARMACY TECHNICIAN): On oral gabapentin Assessment & Plan (12/26/2020 11:55 AM PHARMACY TECHNICIAN): Chronic, stable Assessment & Plan (10/03/2020 11:43 AM CDT): Chronic, stable Assessment & Plan (06/13/2020 3:51 PM CDT): Chronic, stable Assessment & Plan (11/30/2019 3:55 PM CDT): Chronic, stable Assessment & Plan (08/10/2019 12:47 PM CDT): Chronic, stable Assessment & Plan (06/29/2019 5:22 PM CDT): Chronic, stable Assessment & Plan (03/10/2019 10:20 AM PHARMACY TECHNICIAN): Chronic, stable Assessment & Plan (09/23/2017 8:04 PM CDT): Chronic, stable Assessment & Plan (02/25/2017 9:33 AM PHARMACY TECHNICIAN): Chronic, stable Assessment & Plan (11/05/2016 9:46 PM CDT): Stable , on gabapentin Work on tight BS control . Type 2 diabetes mellitus wit h hyperglycemia, with long-term current use of insulin 07/16/2016 Assessment & Plan (10/28/2023 12:55 PM CDT): Chronic, overall well controlled A1c 6,8 % , at goal Counseled on diet and exercise Encouraged to keep working on her exercise routine Continue current insulin regimen Advised to check blood sugars more often encouraged patient to start using CGM Will try to obtain patient recent eye exam copy and last lab results from PCP office Follow-up in 6 months Assessment & Plan (03/15/2023 9:59 AM PHARMACY TECHNICIAN): Chronic, uncontrolled, slightly worsening A1c 7.0% Counseled on diet and exercise Advised patient to increase physical activity Stop Trulicity Start Mounjaro 2.5 mg subQ weekly Continue current insulin regimen Will try to obtain patient recent eye exam copy Follow-up in 6 months Assessment & Plan (08/06/2022 9:47 PM CDT): Chronic, improving control A1c 6.1% - continue Trulicity 0.75 mg subQ weekly ( max tolerated dose ) - continue rest all insulin the same - counseled on diet and exercise - recommend to work on healthy weight loss - annual dilated eye exam - Daily foot care - educated on hypoglycemia - follow-up as scheduled Assessment & Plan (10/30/2021 1:48 PM CDT): Chronic, uncontrolled, worsening A1c 6.4% - continue Trulicity 3 mg subQ weekly - continue rest all insulin the same - counseled on diet and exercise - recommend to work on healthy weight loss - annual dilated eye exam - Daily foot care - educated on hypoglycemia - follow-up as scheduled Assessment & Plan (06/12/2021 12:54 PM CDT): Chronic, uncontrolled, slight worsening since last few weeks A1c 6.8% - change Ozempic to Trulicity 3 mg subQ weekly - continue rest all insulin the same - counseled on diet and exercise - recommend to work on healthy weight loss - annual dilated eye exam - Daily foot care - educated on hypoglycemia - follow-up as scheduled Assessment & Plan (12/26/2020 11:55 AM PHARMACY TECHNICIAN): Chronic, improving control A1c today 6.7 % Patient currently in [facility] Gave ozempic samples advised to start taking 0.5 mg subcu weekly - this will replace trulicity C/w Novolin N 35 units subcu daily in a.m. and 35 units daily at bedtime to replace basaglar Continue Novolin R Counseled diet and exercise Advised to work on stress management Follow-up in 3 months Assessment & Plan (10/03/2020 12:55 PM CDT): Chronic, improving control A1c today 6.7 % Patient currently in [facility] Gave ozempic samples advised to start taking 0.5 mg subcu weekly - this will replace trulicity C/w Novolin N 35 units subcu daily in a.m. and 35 units daily at bedtime to replace basaglar Continue Novolin R Counseled diet and exercise Advised to work on stress management Follow-up in 3 months Assessment & Plan (06/13/2020 3:49 PM CDT): Chronic, uncontrolled, slightly worsening and blood sugar control Patient poor compliance to diet, stress in life A1c today 7.0% Reviewed patient blood sugar Patient currently in [facility] Gave ozempic samples advised to start taking 0.5 mg subcu weekly - this will replace trulicity The patient can start taking Novolin N 45 units subcu daily in a.m. and 25 units daily at bedtime to replace basaglar Continue Novolin R Counseled diet and exercise Advised to work on stress management Follow-up in 3 months Assessment & Plan (02/22/2020 12:53 PM PHARMACY TECHNICIAN): Chronic, uncontrolled , worsening A1c - 7.4 % Reviewed pt BS log - Counseled patient on portion control, carb controlled diet and increase physical activity as tolerated - advise to take Novolin R with meals - without skipping - gave freestyle spring 2 reader and senor samples and send script for Freestyle spring 2 sensors - pt. Currently on Basalgar 70 units SQ at bedtime, - increase Trulicity to 3 mg SQ weekly , Novolin R 14-16 units Three with meals + Below sliding scale 120 - 140 + 2 units 141 - 160 + 4 units 161 - 180 + 6 units 181 - 200 + 8 units 201 - 220 + 10 units 221 - 240 + 12 units 241 - 260 + 14 units 261 - 280 + 16 units Over 281 + 18 units Advised to keep checking her blood sugars Make an eye doctor appt soon Follow-up in 3 months with blood sugar log Assessment & Plan (11/30/2019 3:55 PM CDT): Chronic, uncontrolled , improving A1c - 7.1 % Reviewed pt BS log - Counseled patient on portion control, carb controlled diet and increase physical activity as tolerated - pt. Currently on Basalgar 70 units SQ at bedtime, Trulicity 1.5 mg SQ weekly , Novolin R 18-22 units Three with meals + Below sliding scale 120 - 140 + 2 units 141 - 160 + 4 units 161 - 180 + 6 units 181 - 200 + 8 units 201 - 220 + 10 units 221 - 240 + 12 units 241 - 260 + 14 units 261 - 280 + 16 units Over 281 + 18 units Advised to keep checking her blood sugars Follow-up in 3 months with blood sugar log Assessment & Plan (08/10/2019 12:46 PM CDT): Chronic, uncontrolled , A1c - 8.0 % Reviewed pt BS log - fasting hyperglycemia in postprandial hyperglycemia noted - Counseled patient on portion control, carb controlled diet and increase physical activity as tolerated - pt. Currently on Basalgar 70 units SQ at bedtime, Trulicity 1.5 mg SQ weekly , Humalog 16-20 units Three with meals + Below sliding scale 120 - 140 + 2 units 141 - 160 + 4 units 161 - 180 + 6 units 181 - 200 + 8 units 201 - 220 + 10 units 221 - 240 + 12 units 241 - 260 + 14 units 261 - 280 + 16 units Over 281 + 18 units Advised to keep checking her blood sugars Follow-up in 3 months with blood sugar log next will also work patient to get on dex com G6 Assessment & Plan (06/29/2019 5:21 PM CDT): Chronic, worsening A1c - 8.1 % Pt poor compliance to diet and exercise strongly advise to stop drinking regular sodas and eating ice creams counseled on diet and exercise - stop Glimepiride - decrease Basaglar to 60 units SQ daily at bedtime - start Humalog 16 units Three with meals + Below sliding scale 120 - 140 + 2 units 141 - 160 + 4 units 161 - 180 + 6 units 181 - 200 + 8 units 201 - 220 + 10 units 221 - 240 + 12 units 241 - 260 + 14 units 261 - 280 + 16 units Over 281 + 18 units Continue trulicity 1.5 mg Sq weekly - follow up in 4 weeks Assessment & Plan (04/20/2019 3:54 PM CDT): Chronic, improving with treatment A1c - 7.4 % counseled on diet and exercise C/w Basaglar to 80 units SQ daily Increase Glimepiride 2 mg oral Daily with breakfast and 4 mg with dinner Continue trulicity 1.5 mg Sq weekly checking Bs atleast 2 x daily - before breakfast and before dinner - follow up in 3 months Assessment & Plan (03/10/2019 10:20 AM PHARMACY TECHNICIAN): Chronic, worsening A1c - 9.1 % counseled on diet and exercise Increase Basaglar to 80 units SQ daily Glimepiride 2 mg oral twice daily with meals ( breakfast and dinner ) Continue trulicity 1.5 mg Sq weekly - start checking Bs atleast 2 x daily - before breakfast and before dinner - follow up in 6 weeks Assessment & Plan (10/06/2018 10:24 PM CDT): Diabetes is improving with treatment. A1c today - 6.2 % Pt having recurrent yeast infections on Jardiance Plan to decrease the dose of Jardiance to 10 mg oral daily Continue rest all the meds Advised good oral hydration Reminded to bring in blood sugar diary at next visit. Dietary recommendations for ADA diet. Regular aerobic exercise. Discussed ways to avoid symptomatic hypoglycemia. Discussed sick day management. Discussed foot care. Reminded to get yearly retinal exam. Medication changes per orders. Diabetes will be reassessed in 6 months. Assessment & Plan (04/09/2018 10:39 PM PHARMACY TECHNICIAN): Diabetes is improving with treatment. A1c today - 6.3 % Continue current treatment regimen. Reminded to bring in blood sugar diary at next visit. Dietary recommendations for ADA diet. Regular aerobic exercise. Discussed ways to avoid symptomatic hypoglycemia. Discussed sick day management. Discussed foot care. Reminded to get yearly retinal exam. Diabetes will be reassessed in 6 months. Assessment & Plan (09/23/2017 8:09 PM CDT): Diabetes is fair controlled, with slight recent worsening - A1c today - 7.0 % - reviewed BS log - increase Trulicity to 1.5 mg SQ weekly - c/w Basaglar with 70 units SQ daily at bedtime - C/w Jardiance 25 mg oral daily - advise to check BS atleast 2 x daily - fasting, before dinner - advised to increase physical activity - follow up in 4 months Reminded to bring in blood sugar diary at next visit. Dietary recommendations for ADA diet. Regular aerobic exercise. Discussed ways to avoid symptomatic hypoglycemia. Discussed sick day management. Discussed foot care. Reminded to get yearly retinal exam. Medication changes per orders. Diabetes will be reassessed in 4 months . Assessment & Plan (02/25/2017 9:32 AM PHARMACY TECHNICIAN): Diabetes is improving with treatment. A1c today 6.1 % Continue current treatment regimen. Reminded to bring in blood sugar diary at next visit. Dietary recommendations for ADA diet. Regular aerobic exercise. Discussed ways to avoid symptomatic hypoglycemia. Discussed sick day management. Discussed foot care. Reminded to get yearly retinal exam. Diabetes will be reassessed in 6 months. Assessment & Plan (11/05/2016 9:45 PM CDT): -A1c today - 7.6 % , improving - goal A1c less than 7-7.5 % without hypoglycemia - advised to increase Metformin XR 1000 mg with dinner - continue with Basaglar 70 units SQ daily at bedtime - continue takign Jardiance 25 mg oral daily - start Trulicity 0.75 mg SQ weekly - follow up in 3 months Diabetes is improving with treatment. Reminded to bring in blood sugar diary at next visit. Dietary recommendations for ADA diet. Regular aerobic exercise. Discussed ways to avoid symptomatic hypoglycemia. Discussed sick day management. Discussed foot care. Reminded to get yearly retinal exam. Medication changes per orders. Diabetes will be reassessed in 3 months. Assessment & Plan (07/16/2016 2:54 PM CDT): Diabetes is improving with treatment. Reminded to bring in blood sugar diary at next visit. Regular aerobic exercise. Discussed ways to avoid symptomatic hypoglycemia. Discussed sick day management. Discussed foot care. Reminded to get yearly retinal exam. Medication changes per orders. - continue all medications same - advise to do good oral hydration - personal hygiene - advise to start Januvia 100 mg oral daily in morning - will cut back on Jardiance if having still frequent yeast infection - advise to cut back on Insulin if fasting blood sugars less than 100 - and advise to cut Jardiance to half if having blood sugars less than 100 during evening. When your BS is low, check your BS level as soon as possible. However, but if the monitoring equipment (blood glucose meter, test strips, lancet) is not available go ahead and treat yourself for low blood sugar. Treat yourself quickly, especially if your blood sugar is less than 40 mg/dL If your blood sugar is 51 to 70 mg/dL , eat 1/2 cup fruit juice or 6 to 8 hard candies or 3 to 4 glucose tablets. If you are less than 50 mg/dL Eat 1 cup fruit juice or 14 hard candies or 6 to 8 glucose tablets. Retest after 15 minutes and repeat treatment if needed Diabetes will be reassessed in 3 months. Yeast infection involving the vagina and surroun ding area 07/16/2016 Assessment & Plan (07/16/2016 2:55 PM CDT): - mild , uncomplicated yeast infections - advise personal hygrine - gave fluconazole script to use if needed - will try to cut back on Jardiance if frequent Hypertension associated with diabetes 07/16/2016 Assessment & Plan (10/28/2023 12:54 PM CDT): Chronic, well controlled Continue losartan Assessment & Plan (03/15/2023 10:00 AM PHARMACY TECHNICIAN): Chronic, well controlled Continue losartan Assessment & Plan (08/06/2022 9:46 PM CDT): Hypertension is improving with treatment. Continue current treatment regimen. Dietary sodium restriction. Weight loss. Regular aerobic exercise. Continue current medications. Blood pressure will be reassessed at the next regular appointment. Assessment & Plan (10/30/2021 1:38 PM CDT): Hypertension is improving with treatment. Continue current treatment regimen. Dietary sodium restriction. Weight loss. Regular aerobic exercise. Continue current medications. Blood pressure will be reassessed at the next regular appointment. Assessment & Plan (06/12/2021 12:54 PM CDT): Hypertension is improving with treatment. Continue current treatment regimen. Dietary sodium restriction. Weight loss. Regular aerobic exercise. Continue current medications. Blood pressure will be reassessed at the next regular appointment. Assessment & Plan (12/26/2020 11:55 AM PHARMACY TECHNICIAN): Hypertension is improving with treatment. Continue current treatment regimen. Dietary sodium restriction. Weight loss. Regular aerobic exercise. Continue current medications. Blood pressure will be reassessed at the next regular appointment. Assessment & Plan (10/03/2020 11:43 AM CDT): Hypertension is improving with treatment. Continue current treatment regimen. Dietary sodium restriction. Weight loss. Regular aerobic exercise. Continue current medications. Blood pressure will be reassessed at the next regular appointment. Assessment & Plan (06/13/2020 3:49 PM CDT): Hypertension is improving with treatment. Continue current treatment regimen. Dietary sodium restriction. Weight loss. Regular aerobic exercise. Continue current medications. Blood pressure will be reassessed at the next regular appointment. Assessment & Plan (02/22/2020 12:51 PM PHARMACY TECHNICIAN): Hypertension is improving with treatment. Continue current treatment regimen. Dietary sodium restriction. Weight loss. Regular aerobic exercise. Continue current medications. Blood pressure will be reassessed at the next regular appointment. Assessment & Plan (11/30/2019 3:54 PM CDT): Hypertension is improving with treatment. Continue current treatment regimen. Dietary sodium restriction. Weight loss. Regular aerobic exercise. Continue current medications. Blood pressure will be reassessed at the next regular appointment. Assessment & Plan (08/10/2019 12:47 PM CDT): Hypertension is improving with treatment. Continue current treatment regimen. Dietary sodium restriction. Weight loss. Regular aerobic exercise. Continue current medications. Blood pressure will be reassessed at the next regular appointment. Assessment & Plan (06/29/2019 5:21 PM CDT): Hypertension is improving with treatment. Continue current treatment regimen. Dietary sodium restriction. Weight loss. Regular aerobic exercise. Continue current medications. Blood pressure will be reassessed at the next regular appointment. Assessment & Plan (04/20/2019 3:55 PM CDT): Hypertension is improving with treatment. Continue current treatment regimen. Dietary sodium restriction. Weight loss. Regular aerobic exercise. Continue current medications. Blood pressure will be reassessed at the next regular appointment. Assessment & Plan (03/10/2019 10:20 AM PHARMACY TECHNICIAN): Hypertension is improving with treatment. Continue current treatment regimen. Dietary sodium restriction. Weight loss. Regular aerobic exercise. Continue current medications. Blood pressure will be reassessed at the next regular appointment. Assessment & Plan (10/06/2018 10:25 PM CDT): Hypertension is improving with treatment. Continue current treatment regimen. Dietary sodium restriction. Weight loss. Regular aerobic exercise. Continue current medications. Blood pressure will be reassessed at the next regular appointment. Assessment & Plan (04/09/2018 10:38 PM PHARMACY TECHNICIAN): Hypertension is improving with treatment. Continue current treatment regimen. Dietary sodium restriction. Weight loss. Regular aerobic exercise. Continue current medications. Blood pressure will be reassessed at the next regular appointment. Assessment & Plan (09/23/2017 8:04 PM CDT): Hypertension is improving with treatment. Continue current treatment regimen. Dietary sodium restriction. Weight loss. Regular aerobic exercise. Continue current medications. Blood pressure will be reassessed at the next regular appointment. Assessment & Plan (02/25/2017 9:32 AM PHARMACY TECHNICIAN): Hypertension is improving with treatment. Continue current treatment regimen. Dietary sodium restriction. Weight loss. Regular aerobic exercise. Continue current medications. Blood pressure will be reassessed at the next regular appointment. Assessment & Plan (11/05/2016 9:43 PM CDT): Hypertension is unchanged. Continue current treatment regimen. Dietary sodium restriction. Weight loss. Regular aerobic exercise. Continue current medications. Blood pressure will be reassessed at the next regular appointment. Assessment & Plan (07/16/2016 2:56 PM CDT): Hypertension is improving with treatment. Continue current treatment regimen. Weight loss. Regular aerobic exercise. Blood pressure will be reassessed in 3 months. Arthralgia of hip 04/28/2015 Shortness of breath 12/07/2008 Diabetes mellitus 07/21/2007 Palpitations 02/11/1959 Surgical History Surgery Date Site/Laterality Comments OTHER SURGICAL HISTORY Hysterectomy, total, unilateral removal tube and ovary OTHER SURGICAL HISTORY heel surgery left foot CATARACT EXTRACTION, BILATERAL EYE SURGERY 09/19/2023 Inj in eyes TUBAL LIGATION 02/11/1979 - 02/11/1980 CHOLECYSTECTOMY 02/11/1981 - 02/10/1982 Medical History Medical History Date Comments Type 2 diabetes mellitus (HCC) D iabetes type 2 Hypercholesterolemia High choles terol Hypertension Hypertension Hx Other Medical migraine headac hes Covid-19 08/19/2020 Covid-19 02/17/2021 x2 Family History Medical History Relation Name Comments Lung cancer Brother Cancer, lung; Hypertension Father Hypertension; Throat cancer Father Cancer, throat ; Diabetes type II Mother Diabetes me llitus type 2; Hypertension Mother Hypertension; Migraines Mother Migraines; Breast cancer Sister 2 Cancer, breast ; Heart disease Sister 3 Cardiovascular disease; Cause of : Cardiovascular disease Relation Name Status Comments Brother Father Mother Sister 1 Sister 2 Sister 3 Social History Tobacco Use Types Packs/Day Years Used Date Smoking Tobacco: Never Smokeless Tobacco: Never Alcohol Use Standard Drinks/Week Comments Not Currently 0 (1 standard drink = 0.6 oz pur e alcohol) once every 6 months PHQ-2 Answer Date Recorded PHQ-2 Total Score (If total score is 3 or more points, staff should administer the PHQ-9) 0 10/30/2021 Comments Unknown Sex and Gender Information Value Date Recorded Sex Assigned at Not on file Legal Sex Female 2:48 AM PHARMACY TECHNICIAN Gender Identity Not on file Sexual Orientation Not on file Obstetrics History Last Filed Vital Signs Vital Sign Reading Time Taken Comments Blood Pressure 136/84 05/15/2024 9:11 AM CDT Pulse 93 05/15/2024 9:11 AM CDT Temperature 37.1 C (98.7 F) 06/29/2019 3:16 PM CDT Respiratory Rate 15 05/11/2024 10:08 AM CDT Oxygen Saturation 96% 05/15/2024 9:11 AM CDT Inhaled Oxygen Concentration - - Weight 91.2 kg (201 lb) 05/15/2024 9:11 AM CDT Height 165.1 cm (5' 5) 05/11/2024 10:08 AM CDT Body Mass Index 33.45 05/11/2024 10:08 AM CDT Plan of Treatment Health Maintenance Due Date Last Done Comments Colon Cancer Screening-Colonoscopy 1955 Hepatitis C Screening 1955 Osteoporosis Screening-Bone Density Scan 1954 DTaP/Tdap/Td Vaccine (1 - Tdap) 1965 Hepatitis B Screening 1972 Zoster Vaccine (1 of 2) 2004 Well Visit 65+ 07/24/2019 Pneumococcal vaccine 65+ (2 of 2 - PPSV23) 02/02/2020 12/08/2019 Depression Screening 10/30/2022 10/30/2021, 06/12/2021, 12/26/2020, Additional history exists Influenza Vaccine (#1) 2024 12/08/2019 Fall Risk Assessment 10/27/2024 10/28/2023 Foot Exam 10/27/2024 10/28/2023, 03/2023, 08/06/2022, Additional history exists Hemoglobin A1C 11/10/2024 05/11/2024, 10/12, 03/15/2023, Additional history exists Breast Cancer Screening-Mammogram 01/13/2025 01/14/2024, 12/26/2022, 08/01/2019, Additional history exists Dilated Eye Exam 04/15/2025 04/15/2024, 04/2023, 05/30/2020, Additional history exists Albumin Creatinine Ratio, Urine 08/04/2025 08/04/2024, 10/28/2023, 08/06/2022, Additional history exists Lipid Panel 08/04/2025 08/04/2024, 07/13, 06/12/2021, Additional history exists eGFR 08/04/2025 08/04/2024, 01/11, 08/06/2022, Additional history exists Procedures Procedure Name Priority Date/Time Associated Diagnosis Comments T4, FREE Routine 08/04/2024 8:44 AM CDT Multinodular goiter TSH Routine 08/04/2024 8:44 AM CDT Multinodular goiter LIPID PANEL Routine 08/04/2024 8:44 AM CDT Type 2 diabetes mellitus with hyperglycemia, with long-term current use of insulin (HCC) Hyperlipidemia associated with type 2 diabetes mellitus (HCC) ALBUMIN CREATININE RATIO, URINE Routine 08/04/2024 8:44 AM CDT Type 2 diabetes mellitus with hyperglycemia, with long-term current use of insulin (HCC) Hypertension associated with diabetes (HCC) COMPREHENSIVE METABOLIC PANEL Routine 08/04/2024 8:44 AM CDT Type 2 diabetes mellitus with hyperglycemia, with long-term current use of insulin (HCC) Hypertension associated with diabetes (HCC) Hyperlipidemia associated with type 2 diabetes mellitus (HCC) POCT HEMOGLOBIN A1C Routine 05/11/2024 1 0:11 AM CDT Type 2 diabetes mellitus with hyperglycemia, with long-term current use of insulin (HCC) HM DIABETES EYE EXAM Routine 04/15/2024 8:39 AM PHARMACY TECHNICIAN SCREENING MAMMOGRAM BILATERAL W RAMIRO Schedule Routine, Read Routine (OP Routine) 01/14/2024 2:13 PM PHARMACY TECHNICIAN Screening mammogram, encounter for from Last 3 Months or Most Recently Relevant to Health Maintenance Results * Albumin Creatinine Ratio, Urine (08/04/2024 8:44 AM CDT) Creatinine, ur 135 20 - 275 mg/dL [facility] Microalbumin, ur 3.8 See Note: mg/dL [facility] Comment: Reference Range: Reference Range Not established Microalbumin/creat ratio 28 <30 mg/g creat [facility] Comment: The ADA defines abnormalities in albumin excretion as follows: Albuminuria Category Result (mg/g creatinine) Normal to Mildly increased <30 Moderately increased 30-299 Severely increased > OR = 300 The ADA recommends that at least two of three specimens collected within a 3-6 month period be abnormal before considering a patient to be within a diagnostic category. Urine 08/04/2024 8:44 AM CDT 08/04/2024 8:45 AM CDT Narrative [facility] - 08/05/2024 3:56 AM CDT FASTING:YES FASTING: YES us Isidro Ramos MD LAB URINE ORDERABLE S Final Result [facility] [employer] [facility] [address] [place] [address] * TSH (08/04/2024 8:44 AM CDT) TSH 1.08 0.40 - 4.50 mIU/L [facility] Blood 08/04/2024 8:44 AM CDT 08/04/2024 8:45 AM CDT Narrative [facility] - 08/05/2024 3:56 AM CDT FASTING:YES FASTING: YES us Isidro Ramos MD LAB BLOOD ORDERABLE S Final Result Performing Organization Address City/[facility]/ZIP Co de Phone Number [facility] [address] [place] [id number] * T4, free (08/04/2024 8:44 AM CDT) Pathologist [facility] Free T4 1.0 0.8 - 1.8 ng/dL [facility] Blood 08/04/2024 8:44 AM CDT 08/04/2024 8:45 AM CDT Narrative [facility] - 08/05/2024 3:56 AM CDT FASTING:YES FASTING: YES Isidro Ramos MD LAB BLOOD ORDERABLE S Final Result Performing Organization Address [facility] Co de Phone Number [facility] [facility] [address] [place] [phone] * (ABNORMAL) Lipid panel (08/04/2024 8:44 AM CDT) [facility] Cholesterol 129 <200 mg/dL [employer] [facility]enn[facility] Blake HDL 29(L) > OR = 50 mg/dL [employer] [facility] Triglycerides 309(H) <150 mg/dL [employer] [facility] Comment: If a non-fasting specimen was collected, consider repeat triglyceride testing on a fasting specimen if clinically indicated. Angelina et al. J. of Clin. Lipidol. 2015;9:129-169. LDL 63 mg/dL (calc) [employer] [facility]ennifer Blake Comment: Reference range: <100 Desirable range <100 mg/dL for primary prevention; <70 mg/dL for patients with CHD or diabetic patients with > or = 2 CHD risk factors. LDL-C is now calculated using the Bola calculation, which is a validated novel method providing better accuracy than the Friedewald equation in the estimation of LDL-C. Yusuf BARNEY et al. GALDINO. 2013;310(19): 1980-8785 (http://education.TopOPPS/faq/PYF156) Chol/HDL ratio 4.4 <5.0 (calc) [employer] jennifer Lozano Non-HDL, (LDL+VLDL) 100 <130 mg/dL (calc) [employer]a Lozano Comment: For patients with diabetes plus 1 major ASCVD risk factor, treating to a non-HDL-C goal of <100 mg/dL (LDL-C of <70 mg/dL) is considered a therapeutic option. Blood 08/04/2024 8:44 AM CDT 08/04/2024 8:45 AM CDT Narrative [facility] - 08/05/2024 3:56 AM CDT FASTING:YES FASTING: YES Isidro Ramos MD LAB BLOOD ORDERABLE S Final Result [facility] [address] [place] [address] * (ABNORMAL) Comprehensive metabolic panel (08/04/2024 8:44 AM CDT) Glucose 169(H) 65 - 99 mg/dL [facility]ichaela Lozano Comment: Fasting reference interval For someone without known diabetes, a glucose value >125 mg/dL indicates that they may have diabetes and this should be confirmed with a follow-up test. BUN 16 7 - 25 mg/dL [employer] jennifer Lozano Creatinine 0.75 0.60 - 1.00 mg/dL [employer] jennifer Lozano eGFR 86 > OR = 60 mL/min/1.7 3m2 [employer] jennifer Lozano BUN/creat ratio SEE NOTE: 6 (calc) Austyn EDITDMichaela Lozano Comment: Not Reported: BUN and Creatinine are within reference range. Sodium 142 135 - 146 mmol/L [employer] jennifer Lozano Potassium, pl 4.2 3.5 - 5.3 mmol/L [employer] jennifer Lozano Chloride 107 98 - 110 mmol/L [employer] jennifer Lozano CO2 27 20 - 32 mmol/L [employer] jennifer Lozano Calcium 8.9 8.6 - 10.4 mg/dL [employer] jennifer Lozano Protein, sr 6.7 6.1 - 8.1 g/dL [employer] jennifer Lozano Albumin 4.4 3.6 - 5.1 g/dL [employer] jennifer Lozano GLOBULIN 2.3 1.9 - 3.7 g/dL (calc) [employer] jennifer Lozano Alb/glob ratio 1.9 1.0 - 2.5 (calc) [facility] Bilirubin, total 0.7 0.2 - 1.2 mg/dL [facility] Loz[facility] Alk phos 58 37 - 153 U/L [facility] AST 30 10 - 35 U/L [facility] ALT (SGPT) 26 6 - 29 U/L [facility] Blood 08/04/2024 8:44 AM CDT 08/04/2024 8:45 AM CDT Narrative [facility] - 08/05/2024 3:56 AM CDT FASTING:YES FASTING: YES Isidro Ramos MD LAB BLOOD ORDERABLE S Final Result [facility] [address] [place] [address] * POCT hemoglobin A1c (05/11/2024 10:11 AM CDT) Pathologist [facility] Hemoglobin A1C, POC 6.7 4.0 - 5.6 % Blood 05/11/2024 10:1 1 AM CDT Result [facility] Isidro Ramos MD POINT OF CARE TEST ORDERABLES Final Result * (ABNORMAL) DIABETES EYE EXAM (04/15/2024 8:39 AM PHARMACY TECHNICIAN) Historical Provider HEALTH MAINTENANCE Final Result * Screening Mammogram Bilateral W Ramiro (01/14/2024 2:13 PM PHARMACY TECHNICIAN) Anatomical Region Laterality Modality Breast Bilateral Mammography Narrative 01/15/2024 2:09 PM PHARMACY TECHNICIAN Mammogram Technique: Bilateral Digital Breast Tomosynthesis, Bilateral C-view 2D Screening mammogram. Views obtained: bilateral craniocaudal and bilateral mediolateral oblique. Computer Aided Detection was performed. Mammogram Findings: The present examination has been compared to prior imaging studies performed at [facility] on 08/01/2019, 08/27/2019 and 12/26/2022. There are scattered areas of fibroglandular density. There is no suspicious abnormality in either breast. Impression: There is no mammographic evidence of malignancy. Annual screening mammography is recommended. OVERALL FINAL ASSESSMENT: BI-RADS CATEGORY 1: Negative. Procedure Note Lety Mesa MD - 01/15/2024 Mammogram Technique: Bilateral Digital Breast Tomosynthesis, Bilateral C-view 2D Screening mammogram. Views obtained: bilateral craniocaudal and bilateral mediolateral oblique. Computer Aided Detection was performed. Mammogram Findings: The present examination has been compared to prior imaging studies performed at [facility] on 08/01/2019, 08/27/2019 and 12/26/2022. There are scattered areas of fibroglandular density. There is no suspicious abnormality in either breast. Impression: There is no mammographic evidence of malignancy. Annual screening mammography is recommended. OVERALL FINAL ASSESSMENT: BI-RADS CATEGORY 1: Negative. us Self Screening Mammogram IMG MAMMO PROCEDURES Fi nal Result from Last 3 Months or Most Recently Relevant to Health Maintenance Insurance [facility] MEDICARE [facility] MEDICARE Address[facility] [address] [place] [address] [facility] [facility] Address: [address] [address] [place] [address] [facility] Address: [address] [place] [phone] [facility] Address: [address] [address] [place] [phone] Care Teams Manager Of Drilling Relationship Specialty Start Date End Date Blanca Mason MD PCP - General 05/11/16 Crescencio Juan MD [address] [place] [address] Consulting Physician Rheumatology 07/26/23 Lizet Swain MD [address] [place] [address] [place] [address] Consulting Physician Pain Management 01/23/24
--- OUTSIDE RECORDS SUMMARY | 2024-08-25 11:47 | XMS_ITS | Referral Summary ---
Author Organization [facility] [place] Professional Swisher Address [address] [place] [phone] Care Team Providers Care Lcpc Name Role Phone Blanca Mason MD Primary Care Provider [phone] Crescencio Juan MD Unavailable [phone] Lizet Swain MD Unavailable [phone] Allergies Active Allergy Reactions Criticality Noted Date [...] 50 mg tabletIndicatio ns:Hypertension associated with diabetes ([facility]) Take 1 tablet (50 mg total) by mouth daily 3 Active insulin regular (NovoLIN R) 100 unit/mL vial for injectionIndica tions:Type 2 diabetes mellitus with hyperglycemia, with long-term current use of insulin ([facility]) Inject 20-38 Units under the skin 3 [...] hyperglycemia, with long-term current use of insulin ([facility]) USE 1 STRIP TO CHECK GLUCOSE TWICE [...] ia associated with type 2 diabetes mellitus ([facility]) Take 1 tablet by mouth once daily [...] Juan. Assessment & Plan (01/23/2024 12:18 PM WEEDER): Assessment: 68-year-old female with several joint complaints, [...] symptoms Assessment & Plan (03/15/2023 10:00 AM WEEDER): Last thyroid ultrasound 07/2022 Stable thyroid nodules [...] 10/03/2020 Assessment & Plan (12/26/2020 12:54 PM WEEDER): Performed a thyroid ultrasound in office today [...] well Assessment & Plan (03/15/2023 10:00 AM WEEDER): Pt on statin therapy tolerating well Assessment & Plan (08/06/2022 9:46 PM CDT): Pt on statin therapy tolerating well Assessment & Plan (10/30/2021 1:38 PM CDT): Pt on statin therapy tolerating well Assessment & Plan (06/12/2021 12:54 PM CDT): Pt on statin therapy tolerating well Assessment & Plan (12/26/2020 11:55 AM WEEDER): Pt on statin therapy tolerating well Assessment & Plan (10/03/2020 11:43 AM CDT): Pt on statin therapy tolerating well Assessment & Plan (06/13/2020 3:49 PM CDT): Pt on statin therapy tolerating well Assessment & Plan (02/22/2020 12:51 PM WEEDER): Pt on statin therapy tolerating well Assessment [...] well Assessment & Plan (03/10/2019 10:20 AM WEEDER): Pt on statin therapy tolerating well Assessment & Plan (10/06/2018 10:25 PM CDT): Pt on statin therapy tolerating well Assessment & Plan (04/09/2018 10:39 PM WEEDER): Lipid abnormalities are worsening. Nutritional counseling was provided. and Pharmacotherapy as ordered. Lipids will be reassessed in 6 months. Assessment & Plan (09/23/2017 8:06 PM CDT): Pt. On fenofibrate, discussed about statin - benefits and risks Pt. Not willing to try statin in past, will readdress this during her next follow up visit Assessment & Plan (02/25/2017 9:33 AM WEEDER): Pt. On fenofibrate, discussed about statin - [...] weekly Assessment & Plan (12/26/2020 11:55 AM WEEDER): Counseled on diet and exercise Assessment & [...] weekly Assessment & Plan (02/22/2020 12:51 PM WEEDER): Chronic, slowly improving Discussed about healthy lifestyle [...] weekly Assessment & Plan (03/10/2019 10:20 AM WEEDER): Chronic, worsening Discussed about healthy lifestyle habits [...] discussed. Assessment & Plan (04/09/2018 10:39 PM WEEDER): Obesity is worsening. Discussed the patient's BMI. [...] discussed. Assessment & Plan (02/25/2017 9:32 AM WEEDER): Obesity is improving with treatment. Discussed the [...] 11/05/2016 Assessment & Plan (03/15/2023 10:00 AM WEEDER): On oral gabapentin Assessment & Plan (12/26/2020 11:55 AM WEEDER): Chronic, stable Assessment & Plan (10/03/2020 11:43 AM CDT): Chronic, stable Assessment & Plan (06/13/2020 3:51 PM CDT): Chronic, stable Assessment & Plan (11/30/2019 3:55 PM CDT): Chronic, stable Assessment & Plan (08/10/2019 12:47 PM CDT): Chronic, stable Assessment & Plan (06/29/2019 5:22 PM CDT): Chronic, stable Assessment & Plan (03/10/2019 10:20 AM WEEDER): Chronic, stable Assessment & Plan (09/23/2017 8:04 PM CDT): Chronic, stable Assessment & Plan (02/25/2017 9:33 AM WEEDER): Chronic, stable Assessment & Plan (11/05/2016 9:46 [...] months Assessment & Plan (03/15/2023 9:59 AM WEEDER): Chronic, uncontrolled, slightly worsening A1c 7.0% Counseled [...] scheduled Assessment & Plan (12/26/2020 11:55 AM WEEDER): Chronic, improving control A1c today 6.7 % Patient currently in [facility] Gave ozempic samples advised to start [...] A1c today 6.7 % Patient currently in [facility] Gave ozempic samples advised to start [...] Reviewed patient blood sugar Patient currently in [facility] Gave ozempic samples advised to start taking 0.5 mg subcu weekly - this will replace trulicity The patient can start taking Novolin N 45 units subcu daily in a.m. and 25 units daily at bedtime to replace basaglar Continue Novolin R Counseled diet and exercise Advised to work on stress management Follow-up in 3 months Assessment & Plan (02/22/2020 12:53 PM WEEDER): Chronic, uncontrolled , worsening A1c - 7.4 [...] months Assessment & Plan (03/10/2019 10:20 AM WEEDER): Chronic, worsening A1c - 9.1 % counseled [...] months. Assessment & Plan (04/09/2018 10:39 PM WEEDER): Diabetes is improving with treatment. A1c today [...] . Assessment & Plan (02/25/2017 9:32 AM WEEDER): Diabetes is improving with treatment. A1c today [...] losartan Assessment & Plan (03/15/2023 10:00 AM WEEDER): Chronic, well controlled Continue losartan Assessment & [...] appointment. Assessment & Plan (12/26/2020 11:55 AM WEEDER): Hypertension is improving with treatment. Continue current [...] appointment. Assessment & Plan (02/22/2020 12:51 PM WEEDER): Hypertension is improving with treatment. Continue current [...] appointment. Assessment & Plan (03/10/2019 10:20 AM WEEDER): Hypertension is improving with treatment. Continue current [...] appointment. Assessment & Plan (04/09/2018 10:38 PM WEEDER): Hypertension is improving with treatment. Continue current [...] appointment. Assessment & Plan (02/25/2017 9:32 AM WEEDER): Hypertension is improving with treatment. Continue current [...] breath 12/07/2008 Diabetes mellitus 07/21/2007 Palpitations 02/11/1960 Social History Tobacco Use Types Packs/Day Years [...] on file Legal Sex Female 2:48 AM WEEDER Gender Identity Not on file Sexual Orientation Not on file Last Filed Vital Signs Vital Sign Reading [...] 05/11/2024 10:08 AM CDT Plan of Treatment Not on file Procedures Procedure Name Priority Date/Time Associated Diagnosis [...] DIABETES EYE EXAM Routine 04/15/2024 8:39 AM WEEDER SCREENING MAMMOGRAM BILATERAL W RAMIRO Schedule Routine, Read Routine (OP Routine) 01/14/2024 2:13 PM WEEDER Screening mammogram, encounter for from Last 3 Months or Most Recently Relevant to Health Maintenance Results * Albumin Creatinine Ratio, Urine (08/04/2024 8:44 AM CDT) Pathologist [facility] Creatinine, ur 135 20 - 275 mg/dL [...] LAB URINE ORDERABLE S Final Result [facility] [address] [place] [address] * TSH (08/04/2024 8:44 AM CDT) Pathologist [facility] TSH 1.08 0.40 - 4.50 mIU/L [employer] [facility] Blood 08/04/2024 8:44 AM CDT 08/04/2024 8:45 AM CDT Narrative [facility] - 08/05/2024 3:56 AM CDT FASTING:YES FASTING: YES us Isidro Ramos MD LAB BLOOD ORDERABLE S Final Result [facility] [address] [place] [address] * T4, free (08/04/2024 8:44 AM CDT) Pathologist [facility] Free T4 1.0 0.8 - 1.8 ng/dL [employer] [facility] Blood 08/04/2024 8:44 AM CDT 08/04/2024 8:45 AM CDT Narrative [facility] - 08/05/2024 3:56 AM CDT FASTING:YES FASTING: YES Isidro Ramos MD LAB BLOOD ORDERABLE S Final Result [employer] [employer] [address] [place] [address] * (ABNORMAL) Lipid panel (08/04/2024 8:44 AM CDT) [facility] Cholesterol 129 <200 mg/dL [employer] [facility] [employer] jennifer Lozano HDL 29(L) > OR = 50 mg/dL [employer] [facility] [employer] [facility]ifer Lozano Triglycerides 309(H) <150 mg/dL [employer] [facility] [employer] jennifer Lozano Comment: If a non-fasting specimen was collected, consider repeat triglyceride testing on a fasting specimen if clinically indicated. Angelina et al. J. of Clin. Lipidol. 2015;9:129-169. LDL 63 mg/dL (calc) [employer] [facility] [employer] Lozano Comment: Reference range: <100 Desirable range <100 mg/dL for primary prevention; <70 mg/dL for patients with CHD or diabetic patients with > or = 2 CHD risk factors. LDL-C is now calculated using the Yusuf-Price calculation, which is a validated novel method providing better accuracy than the Friedewald equation in the estimation of LDL-C. Yusuf SS et al. GALDINO. 2013;310(19): 8183-6043 (http://education.Pulse 8.eBIZ.mobility/faq/FEU416) Chol/HDL ratio 4.4 <5.0 (calc) [employer] Non-HDL, (LDL+VLDL) 100 <130 mg/dL (calc) [employer] jennifer Lozano Comment: For patients with diabetes plus 1 major ASCVD risk factor, treating to a non-HDL-C goal of <100 mg/dL (LDL-C of <70 mg/dL) is considered a therapeutic option. Blood 08/04/2024 8:44 AM CDT 08/04/2024 8:45 AM CDT Narrative [facility] - 08/05/2024 3:56 AM CDT FASTING:YES FASTING: YES Isidro Ramos MD LAB BLOOD ORDERABLE S Final Result [facility] [address] [place] [address] * (ABNORMAL) Comprehensive metabolic panel (08/04/2024 8:44 AM CDT) Glucose 169(H) 65 - 99 mg/dL [facility] Blake Comment: Fasting reference interval For someone without known diabetes, a glucose value >125 mg/dL indicates that they may have diabetes and this should be confirmed with a follow-up test. BUN 16 7 - 25 mg/dL [facility] [employer] Blake Creatinine 0.75 0.60 - 1.00 mg/dL [facility] [employer] rodr[facility]z Blake eGFR 86 > OR = 60 mL/min/1.7 3m2 [facility] [employer] Lozano BUN/creat ratio SEE NOTE: 6 - 22 (calc) [facility] [employer]z Blake Comment: Not Reported: BUN and Creatinine are within reference range. Sodium 142 135 - 146 mmol/L [facility] Blake Potassium, pl 4.2 3.5 - 5.3 mmol/L [facility] [employer]dr[facility]z Blake Chloride 107 98 - 110 mmol/L [facility] [employer] jennifer Blake CO2 27 20 - 32 mmol/L [facility] jennifer Blake Calcium 8.9 8.6 - 10.4 mg/dL [facility] [employer] rodriguez Blake Protein, sr 6.7 6.1 - 8.1 g/dL [facility] [employer] jennifer Blake Albumin 4.4 3.6 - 5.1 g/dL [facility]ennifer Blake GLOBULIN 2.3 1.9 - 3.7 g/dL (calc) [facility] Blake Alb/glob ratio 1.9 1.0 - 2.5 (calc) [facility] Blake Bilirubin, total 0.7 0.2 - 1.2 mg/dL [facility] jenn[facility] Blake Alk phos 58 37 - 153 U/L [facility] [employer]ennifer Blake AST 30 10 - 35 U/L [facility] Blake ALT (SGPT) 26 6 - 29 U/L [employer] [facility] [facility] Blake Blood 08/04/2024 8:44 AM CDT 08/04/2024 8:45 AM CDT Narrative [facility] - 08/05/2024 3:56 AM CDT FASTING:YES FASTING: YES Isidro Ramos MD LAB BLOOD ORDERABLE S Final Result [facility] [address] [place] [address] * POCT hemoglobin A1c (05/11/2024 10:11 AM CDT) Hemoglobin A1C, POC 6.7 4.0 - 5.6 % Blood 05/11/2024 10:1 1 AM CDT Isidro Ramos MD POINT OF CARE TEST ORDERABLES Final Result * (ABNORMAL) DIABETES EYE EXAM (04/15/2024 8:39 AM WEEDER) Historical Provider HEALTH MAINTENANCE Final Result * Screening Mammogram Bilateral W Ramiro (01/14/2024 2:13 PM WEEDER) Anatomical Region Laterality Modality Breast Bilateral Mammography Narrative 01/15/2024 2:09 PM WEEDER Mammogram Technique: Bilateral Digital Breast Tomosynthesis, Bilateral C-view 2D Screening mammogram. Views obtained: bilateral craniocaudal and bilateral mediolateral oblique. Computer Aided Detection was performed. Mammogram Findings: The present examination has been compared to prior imaging studies performed at [facility] on 08/01/2019, 08/27/2019 and 12/26/2022. There [...] compared to prior imaging studies performed at [facility] on 08/01/2019, 08/27/2019 and 12/26/2022. There are scattered areas of fibroglandular density. There is no suspicious abnormality in either breast. Impression: There is no mammographic evidence of malignancy. Annual screening mammography is recommended. OVERALL FINAL ASSESSMENT: BI-RADS CATEGORY 1: Negative. us Self Screening Mammogram IMG MAMMO PROCEDURES Fi nal Result from Last 3 Months or Most Recently Relevant to Health Maintenance Insurance [employer] [facility] Address: [address] [address] [place] [address] [facility] Address: [address] [address] [place] [address] [facility] Address: [address] [address] [place] [address] [facility] Address: [address] [address] [place] [address] Care Teams Lcpc Relationship Specialty Start Date End Date Blanca Mason MD PCP - General 05/11/16 Crescencio Juan MD [address] [place] [address] Consulting Physician Rheumatology 07/26/23 Lizet Swain MD [address] [place] [address] [place] [address] Consulting Physician Pain Management 01/23/24
[2024-08-25 12:09] VITALS: BP 175/68; PULSE 96; RESP 16; O2SAT 95
--- NOTE | 2024-08-25 12:10 | PC.NURSE ---
CT notified pt. is ready and green top is at bedside.
[2024-08-25 12:17] LABS: Estimated CRCL calculation 73 ml/min; Estimated Glomerular Filt Rate > 60
[2024-08-25 12:58] VITALS: BP 150/96; PULSE 90; RESP 16; O2SAT 97
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
[2024-08-25 14:58] VITALS: BP 160/95; PULSE 85; RESP 16; O2SAT 95
== END 2024-08-25 15:00 | disposition home or self-care (01) ==
PROVIDERS: Emergency Provider Physician Assistant; PCP Family Medicine
DX: S40.022A Contusion of left upper arm, initial encounter (principal); S40.812A Abrasion of left upper arm, initial encounter; E04.1 Nontoxic single thyroid nodule; R91.1 Solitary pulmonary nodule; E78.49 Other hyperlipidemia; E11.41 Type 2 diabetes mellitus with diabetic mononeuropathy; Z98.42 Cataract extraction status, left eye; Z98.41 Cataract extraction status, right eye; Z90.710 Acquired absence of both cervix and uterus; Z79.82 Long term (current) use of aspirin; Z79.899 Other long term (current) drug therapy; Z79.4 Long term (current) use of insulin; V49.40XA Driver injured in collision with unspecified motor vehicles in traffic accident, initial encounter
CPT/HCPCS: 70450; 71260; 72125; 73060; 73080; 99284; Q9967

== ENCOUNTER 2024-09-04 09:23 | Outpatient (CLI) | payer MEDICARE, SELFPAY ==
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
--- NOTE | ~2024-09-04 | XR_ITS ---
XR hip LT 2V w AP pelvis 09/04/2024 10:54 Indication: Left hip pain Procedure: 3 views left hip Comparison: 06/05/2021 Findings: Moderate osteoarthritis of the left hip. No fracture, subluxation or dislocation. There is also osteoarthritis of the right hip. Pelvic rings intact. Sacral foramen are symmetric. There is low er lumbar spondylosis. Impression: 1: Moderate osteoarthritis of the left hip. Reviewed, dictated and finalized at location A. Impression: 1: Moderate osteoarthritis of the left hip.
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
== END 2024-09-04 09:24 | disposition home or self-care (01) ==
PROVIDERS: PCP Family Medicine; Visit Provider Family Medicine
DX: M25.572 Pain in left ankle and joints of left foot (principal); M25.562 Pain in left knee; R07.81 Pleurodynia; M85.88 Other specified disorders of bone density and structure, other site; M16.12 Unilateral primary osteoarthritis, left hip
CPT/HCPCS: 71100; 72072; 73502; 73564; 73610

== ENCOUNTER 2024-11-25 10:00 | Outpatient (RCR) | payer MEDICARE, SELFPAY ==
--- NOTE | 2024-09-16 16:59 | OPREHPOC ---
Outpatient Therapy Plan of Care This is a Multidisciplinary Plan of Care that may contain components documented by all disciplines (PT, OT, and ST.) PT Problem 1 PT Problem #1 Knowledge Deficit PT Goal 1 Goal / Goal Update Independent with HEP Target Visit 8 PT Problem 2 PT Problem #2 Pain PT Goal 1 Goal / Goal Update * pt report pain of 5/10 at worst in L knee/LE Target Visit 8 PT Problem 3 PT Problem #3 Impaired Flexibility PT Goal 1 Goal / Goal Update 1* pt perform L knee flexion and extension without reports of tightness or pain 2* pt perform L ankle motions without report of tightness or pain Target Visit 8 PT Problem 4 PT Problem #4 Impaired Functional Mobility PT Goal 1 Goal / Goal Update 1* pt ambulate with good weight shift onto L LE 2* 5 reps sit/stand time of 18 seconds 3* 2 minute walking test distance of 350' 4* pt up/down 12 steps with one hand railing and alternate step pattern 5* pt report walking in community Target Visit 8
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
--- NOTE | 2024-10-16 10:11 | OPREHPOC ---
Outpatient Therapy Plan of Care This is a Multidisciplinary Plan of Care that may contain components documented by all disciplines (PT, OT, and ST.) PT Problem 1 PT Problem #1 Knowledge Deficit PT Goal 1 Goal / Goal Update Independent with HEP 10-16-24 progress goal met continue to progress HEP and education Target Visit 16 PT Problem 2 PT Problem #2 Pain PT Goal 1 Goal / Goal Update * pt report pain of 5/10 at worst in L knee/LE 10-16-24 progress goal met Target Visit 8 Progress Met PT Goal 2 Goal / Goal Update 10-16-24 progress NEW GOAL: 1* pain L hip at 4/10 worst Target Visit 16 PT Problem 3 PT Problem #3 Impaired Flexibility PT Goal 1 Goal / Goal Update 1* pt perform L knee flexion and extension without reports of tightness or pain 2* pt perform L ankle motions without report of tightness or pain 10-16-24 progress goal met Target Visit 8 Progress Met PT Goal 2 Goal / Goal Update 10-16-24 progress NEW GOAL 1* L anterior hip-quad length with prone knee flexion 120' Target Visit 16 PT Problem 4 PT Problem #4 Impaired Functional Mobility PT Goal 1 Goal / Goal Update 1* pt ambulate with good weight shift onto L LE 2* 5 reps sit/stand time of 18 seconds 3* 2 minute walking test distance of 350' 4* pt up/down 12 steps with one hand railing and alternate step pattern 5* pt report walking in community 10-16-24 progress goal met Target Visit 8 Progress Met PT Goal 2 Goal / Goal Update 10-16-24 progress NEW GOALS: 1* 2 minute walking test distance of 450' 2* 5 reps sit/stand time of 13 seconds without use of UE Target Visit 16 PT Problem 5 PT Problem #5 Impaired Strength PT Goal 1 Goal / Goal Update 10-16-24 progress NEW GOALS: 1* gross strength of L hip 4+/5 2* sit/stand with good position of L LE/ no hip adduction and normal base of support
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
--- NOTE | 2024-11-25 11:02 | OPREHPOC ---
Outpatient Therapy Plan of Care This is a Multidisciplinary Plan of Care that may contain components documented by all disciplines (PT, OT, and ST.) PT Problem 1 PT Problem #1 Knowledge Deficit PT Goal 1 Goal / Goal Update Independent with HEP 10-16-24 progress goal met continue to progress HEP and education 11-25-24 d/c goal met Target Visit 16 Progress Met PT Problem 2 PT Problem #2 Pain PT Goal 1 Goal / Goal Update * pt report pain of 5/10 at worst in L knee/LE 10-16-24 progress goal met 11-25-24 d/c goal met-pain rating of 5/10 Target Visit 16 Progress Met PT Goal 2 Goal / Goal Update 10-16-24 progress NEW GOAL: 1* pain L hip at 4/10 worst 11-25-24 d/c goal met, 3/10 Target Visit 16 Progress Met PT Problem 3 PT Problem #3 Impaired Flexibility PT Goal 1 Goal / Goal Update 1* pt perform L knee flexion and extension without reports of tightness or pain 2* pt perform L ankle motions without report of tightness or pain 10-16-24 progress goal met Target Visit 8 Progress Met PT Goal 2 Goal / Goal Update 10-16-24 progress NEW GOAL 1* L anterior hip-quad length with prone knee flexion 120' 11-25-24 d/c goal met Target Visit 16 Progress Met PT Problem 4 PT Problem #4 Impaired Functional Mobility PT Goal 1 Goal / Goal Update 1* pt ambulate with good weight shift onto L LE 2* 5 reps sit/stand time of 18 seconds 3* 2 minute walking test distance of 350' 4* pt up/down 12 steps with one hand railing and alternate step pattern 5* pt report walking in community 10-16-24 progress goal met Target Visit 8 Progress Met PT Goal 2 Goal / Goal Update 10-16-24 progress NEW GOALS: 1* 2 minute walking test distance of 450' 2* 5 reps sit/stand time of 13 seconds without use of UE 11-25-24 d/c goals met Target Visit 16 Progress Met PT Problem 5 PT Problem #5 Impaired Strength PT Goal 1 Goal / Goal Update 10-16-24 progress NEW GOALS: 1* gross strength of L hip 4+/5 2* sit/stand with good position of L LE/ no hip adduction and normal base of support 11-25-24 d/c goals met Target Visit 16 Progress Met
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
== END 2024-11-25 12:53 | disposition home or self-care (01) ==
LOC: ANHPT 10:00
PROVIDERS: PCP Family Medicine; Visit Provider Family Medicine
DX: M54.2 Cervicalgia (principal); M25.572 Pain in left ankle and joints of left foot; M25.562 Pain in left knee; R07.81 Pleurodynia; V89.2XXA Person injured in unspecified motor-vehicle accident, traffic, initial encounter
CPT/HCPCS: 97014; 97035; 97110; 97112; 97116; 97140; 97162; 97530; G0283